=== PATIENT | female | born 1960 | race American Indian/Alaskan Native ===

== ENCOUNTER 2019-01-06 09:01 | Emergency (ER) | payer MEDICARE ==
[2019-01-06] MEDS ORDERED: ZOFRAN IV ONE (10:21)
[2019-01-06] MEDS ORDERED: MORPHINE IV ONE (10:21)
[2019-01-06] MEDS ORDERED: ROXICODONE PO ONE (10:42)
[2019-01-06 10:54] LABS: Basophils % (Auto) 0.7 % (0.0-1.8); Hematocrit 48.9 % (30.3-42.9); Hemoglobin 16.4 gm/dl (10.1-14.3); Lymphocytes # (Auto) 0.5 K/mm3 (1.2-5.4); Lymphocytes % (Auto) 12.3 % (13.4-35.0); Mean Corpuscular HGB Conc 34 % (30-34); Mean Corpuscular Volume 93 fl (79-97); Monocytes # (Auto) 0.1 K/mm3 (0.0-0.8); Monocytes % (Auto) 2.6 % (0.0-7.3); Platelet Count 329 K/mm3 (140-440); Red Blood Count 5.26 M/mm3 (3.65-5.03); Red Cell Distribution Width 12.8 % (13.2-15.2)
[2019-01-06 11:22] LABS: Alanine Aminotransferase 25 units/L (7-56); Albumin 4.2 g/dL (3.9-5); BUN/Creatinine Ratio 18; Blood Urea Nitrogen 7 mg/dL (7-17); Calcium 11.3 mg/dL (8.4-10.2); Hemolysis Index 50
--- NOTE | 2019-01-06 11:44 | Emergency Department Report ---
ED General Adult HPI - General Chief complaint: Pain General Stated complaint: CHEST PAIN Time Seen by Provider: 01/06/19 10:21 Source: patient, EMS Mode of arrival: Wheelchair Limitations: No Limitations - History of Present Illness Initial comments: Patient is a 58-year-old female past medical history of metastatic breast cancer who presents with chronic pain all over her body. Patient states that she has pain in her chest and in her back this is her typical type of cancer pain however when she tried to take some of her reduction pain medicine it did not help relieve the pain. Severity scale (0 -10): 10 - Related Data Previous Rx's Medication Instructions Recorded Last Taken Type oxyCODONE /ACETAMINOPHEN [Percocet 1 tab PO Q6H PRN #30 tablet 12/27/18 Unknown Rx 5/325 mg] traMADol [Ultram 50 MG tab] 50 mg PO Q4H PRN #20 tablet 12/27/18 Unknown Rx Oxycodone HCl [roxiCODONE] 15 mg PO Q6H PRN #21 tablet 01/06/19 Unknown Rx Allergies Allergy/AdvReac Type Severity Reaction Status Date / Time acetaminophen [From Tylenol] Allergy Rash Verified 01/06/19 09:03 aspirin Allergy Rash Verified 01/06/19 09:03 ibuprofen Allergy Rash Verified 01/06/19 09:03 ED Review of Systems ROS: Stated complaint: CHEST PAIN Other details as noted in HPI Constitutional: denies: chills, fever Eyes: denies: eye pain, eye discharge, vision change ENT: denies: ear pain, throat pain Respiratory: denies: cough, shortness of breath, wheezing Cardiovascular: denies: palpitations Endocrine: no symptoms reported Gastrointestinal: denies: abdominal pain, nausea, diarrhea Genitourinary: denies: urgency, dysuria, discharge Musculoskeletal: back pain, arthralgia, myalgia. denies: joint swelling Skin: denies: rash, lesions Neurological: denies: headache, weakness, paresthesias Psychiatric: denies: anxiety, depression Hematological/Lymphatic: denies: easy bleeding, easy bruising ED Past Medical Hx - Past Medical History Hx Liver Disease: Yes (hep C) Additional medical history: breast CA - Surgical History Hx Breast Surgery: Yes (Left masectomy) - Social History Smoking Status: Former Smoker Substance Use Type: None - Medications Home Medications: Home Medications Medication Instructions Recorded Confirmed Last Taken Type oxyCODONE /ACETAMINOPHEN [Percocet 1 tab PO Q6H PRN #30 tablet 12/27/18 Unknown Rx 5/325 mg] traMADol [Ultram 50 MG tab] 50 mg PO Q4H PRN #20 tablet 12/27/18 Unknown Rx Oxycodone HCl [roxiCODONE] 15 mg PO Q6H PRN #21 tablet 01/06/19 Unknown Rx ED Physical Exam - General Limitations: No Limitations General appearance: alert, in no apparent distress - Head Head exam: Present: atraumatic, normocephalic - Eye Eye exam: Present: normal appearance - ENT ENT exam: Present: mucous membranes moist - Neck Neck exam: Present: normal inspection - Respiratory Respiratory exam: Present: normal lung sounds bilaterally. Absent: respiratory distress - Cardiovascular Cardiovascular Exam: Present: regular rate, normal rhythm. Absent: systolic murmur, diastolic murmur, rubs, gallop - GI/Abdominal GI/Abdominal exam: Present: soft, normal bowel sounds - Extremities Exam Extremities exam: Present: normal inspection - Back Exam Back exam: Present: normal inspection - Neurological Exam Neurological exam: Present: alert, oriented X3 - Psychiatric Psychiatric exam: Present: normal affect, normal mood - Skin Skin exam: Present: warm, dry, intact, normal color. Absent: rash ED Course Vital Signs 01/06/19 01/06/19 01/06/19 09:03 10:50 10:54 Pulse Rate 88 Respiratory 22 18 18 Rate Blood Pressure 160/97 O2 Sat by Pulse 98 99 Oximetry 01/06/19 01/06/19 11:20 11:43 Pulse Rate Respiratory 18 18 Rate Blood Pressure O2 Sat by Pulse Oximetry ED Medical Decision Making - Lab Data Result diagrams: 01/06/19 10:36 01/06/19 10:36 Lab Results 01/06/19 01/06/19 Range/Units 10:36 10:36 WBC 4.4 L (4.5-11.0) K/mm3 RBC 5.26 H (3.65-5.03) M/mm3 Hgb 16.4 H (10.1-14.3) gm/dl Hct 48.9 H (30.3-42.9) % MCV 93 (79-97) fl MCH 31 (28-32) pg MCHC 34 (30-34) % RDW 12.8 L (13.2-15.2) % Plt Count 329 (140-440) K/mm3 Lymph % (Auto) 12.3 L (13.4-35.0) % Cecil % (Auto) 2.6 (0.0-7.3) % Eos % (Auto) 0.0 (0.0-4.3) % Baso % (Auto) 0.7 (0.0-1.8) % Lymph # 0.5 L (1.2-5.4) K/mm3 Cecil # 0.1 (0.0-0.8) K/mm3 Eos # 0.0 (0.0-0.4) K/mm3 Baso # 0.0 (0.0-0.1) K/mm3 Seg Neutrophils % 84.4 H (40.0-70.0) % Seg Neutrophils # 3.8 (1.8-7.7) K/mm3 Sodium 139 (137-145) mmol/L Potassium 3.6 (3.6-5.0) mmol/L Chloride 96.1 L (98-107) mmol/L Carbon Dioxide 25 (22-30) mmol/L Anion Gap 22 mmol/L BUN 7 (7-17) mg/dL Creatinine 0.4 L (0.7-1.2) mg/dL Estimated GFR > 60 ml/min BUN/Creatinine Ratio 18 % Glucose 128 H (65-100) mg/dL Calcium 11.3 H (8.4-10.2) mg/dL Total Bilirubin 0.80 (0.1-1.2) mg/dL AST 61 H (5-40) units/L ALT 25 (7-56) units/L Alkaline Phosphatase 164 H (35-129) units/L Troponin T < 0.010 (0.00-0.029) ng/mL Total Protein 9.2 H (6.3-8.2) g/dL Albumin 4.2 (3.9-5) g/dL Albumin/Globulin Ratio 0.8 % - Medical Decision Making Chief medical diagnosis: Metastatic cancer pain Differential medical diagnosis: Electrolyte abnormality, pain secondary to bony metastasis BLOOD work and I will get IV pain medication. Critical care attestation.: If time is entered above; I have spent that time in minutes in the direct care of this critically ill patient, excluding procedure time. ED Disposition Clinical Impression: Metastatic cancer, Total body pain Disposition: DC-01 TO HOME OR SELFCARE Is pt being admited?: No Does the pt Need Aspirin: No Condition: Stable Prescriptions: Oxycodone HCl [roxiCODONE] 15 mg PO Q6H PRN #21 tablet PRN Reason: Pain Referrals: EDISON HERZOG MD [Primary Care Provider] - 3-5 Days
[2019-01-06 14:27] VITALS: BP 106/86
== END 2019-01-06 14:36 | disposition home or self-care (01) ==
LOC: ED 09:01
DX: C50.919 Malignant neoplasm of unspecified site of unspecified female breast (principal); R07.89 Other chest pain; M79.10 Myalgia, unspecified site; Z88.5 Allergy status to narcotic agent; Z88.6 Allergy status to analgesic agent; Z90.12 Acquired absence of left breast and nipple; Z87.891 Personal history of nicotine dependence
CPT/HCPCS: 36415; 80053; 84484; 85025; 96374; 96375; 99284; J2270; J2405

== ENCOUNTER 2019-02-15 20:49 | Emergency (ER) | payer MEDICARE ==
--- NOTE | 2019-02-15 21:28 | Emergency Department Report ---
ED General Adult HPI - General Chief complaint: Pain General Stated complaint: PT WANTS PAIN MEDS Time Seen by Provider: 02/15/19 21:25 Source: patient, EMS (verbal report received from EMS.ems notes not available at time of chart dictation), RN notes reviewed, old records reviewed Mode of arrival: Stretcher Limitations: Other (patient is reportedly hard of hearing) - History of Present Illness Initial comments: This is a 58-year-old female. Patient is not known to this provider previously. Patient has a recent history of metastatic breast cancer. Patient recently had an extensive evaluation at this hospital within the past month and a half, CT scan of the chest, abdomen, pelvis suggesting metastatic disease. She is documented to have diffuse body pain, and she also had MR of the lumbar spine recently performed, demonstrating multiple mass lesions involving the lumbosacral spine, and iliac bones. Of note, patient has recently presented multiple times to this hospital for chest wall pain, extremity pain secondary to presumed metastatic disease. Additional history obtained from EMS. As per verbal report from EMS, patient has been having chronic pain, which is corroborated by the patient's family member/granddaughter, and the patient was able to walk to the door into the ambulance using a walker without significant difficulty. EMS also indicates that while the patient has a hearing aid and may be hard of hearing, the patient was able to hear her granddaughter perfectly well, but while communicating with 911 personnel, indicated that she could not hear them. The patient was furthermore seen by one of my colleagues at this hospital recently for chronic pain. Today, the patient complains of chest wall pain, back pain, and muscular skeletal pain. The patient does not think that she's had pain like this before. However, review of recent medical documentation indicates multiple visits for similar pain. The patient indicates her chest wall pain is sharp, increases with palpation, decreases with rest, and decreases with range of motion. The patient indicates no new or different lower extremity weakness. The patient does not indicate bladder or bowel retention or incontinence. The patient denies fevers. The patient has chronic shortness of breath. The patient makes no complaints of vomiting or diaphoresis. The patient is not sure if she is taking aspirin recently. She indicates she is following up with outpatient oncology doctor Krystian Radiation: other Quality: other Consistency: other Improves with: other Worsens with: other Associated Symptoms: other - Related Data Previous Rx's Medication Instructions Recorded Last Taken Type oxyCODONE /ACETAMINOPHEN [Percocet 1 tab PO Q6H PRN #30 tablet 12/27/18 Unknown Rx 5/325 mg] traMADol [Ultram 50 MG tab] 50 mg PO Q4H PRN #20 tablet 12/27/18 Unknown Rx Oxycodone HCl [roxiCODONE] 15 mg PO Q6H PRN #21 tablet 01/06/19 Unknown Rx Allergies Allergy/AdvReac Type Severity Reaction Status Date / Time acetaminophen [From Tylenol] Allergy Rash Verified 01/06/19 09:03 aspirin Allergy Rash Verified 01/06/19 09:03 ibuprofen Allergy Rash Verified 01/06/19 09:03 ED Review of Systems ROS: Stated complaint: PT WANTS PAIN MEDS Other details as noted in HPI Constitutional: malaise Eyes: denies: eye discharge ENT: denies: epistaxis Respiratory: denies: wheezing Cardiovascular: chest pain Gastrointestinal: denies: vomiting Musculoskeletal: back pain, arthralgia, myalgia Skin: denies: lesions Neurological: weakness Psychiatric: anxiety ED Past Medical Hx - Past Medical History Hx Liver Disease: Yes (hep C) Additional medical history: breast CA - Surgical History Hx Breast Surgery: Yes (Left masectomy) - Social History Smoking Status: Former Smoker Substance Use Type: None - Medications Home Medications: Home Medications Medication Instructions Recorded Confirmed Last Taken Type oxyCODONE /ACETAMINOPHEN [Percocet 1 tab PO Q6H PRN #30 tablet 12/27/18 Unknown Rx 5/325 mg] traMADol [Ultram 50 MG tab] 50 mg PO Q4H PRN #20 tablet 12/27/18 Unknown Rx Oxycodone HCl [roxiCODONE] 15 mg PO Q6H PRN #21 tablet 01/06/19 Unknown Rx ED Physical Exam - General Limitations: No Limitations General appearance: alert, in no apparent distress, anxious - Head Head exam: Present: atraumatic, normocephalic - Eye Eye exam: Present: normal appearance, EOMI. Absent: nystagmus - ENT ENT exam: Present: normal exam, normal orophraynx, mucous membranes moist, n ormal external ear exam - Neck Neck exam: Present: normal inspection, full ROM. Absent: tenderness - Respiratory Respiratory exam: Present: normal lung sounds bilaterally. Absent: respiratory distress - Cardiovascular Cardiovascular Exam: Present: regular rate, normal rhythm, normal heart sounds. Absent: bradycardia, tachycardia, irregular rhythm, systolic murmur, diastolic murmur, rubs, gallop - GI/Abdominal GI/Abdominal exam: Present: soft. Absent: distended, tenderness, guarding, rebound, rigid, pulsatile mass - Extremities Exam Extremities exam: Present: normal inspection, full ROM, tenderness, other (there is 2+ pulses in the bilateral upper, lower extremities. The pelvis is stable. There is no long distal bony tenderness. The muscular compartments are soft. Patient has paraspinal tenderness. She has proximal femur tenderness.). Absent: calf tenderness - Back Exam Back exam: Present: normal inspection, tenderness, paraspinal tenderness - Neurological Exam Neurological exam: Present: alert, other (Extraocular movements intact. Tongue midline. No facial droop. Facial sensation intact to light touch in the V1, V2, V3 distribution bilaterally. 5 and 5 strength in 4 extremities.. Sensation is intact to light touch in 4 extremities.) - Psychiatric Psychiatric exam: Present: anxious - Skin Skin exam: Present: warm, dry, intact, normal color. Absent: rash ED Course Vital Signs 02/15/19 21:38 Temperature 98.6 F Pulse Rate 88 Respiratory 21 Rate Blood Pressure 158/87 O2 Sat by Pulse 97 Oximetry - Reevaluation(s) Reevaluation #1: 02/15/19 21:28 [place] [employer]ER AWARE Total Prescriptions 4 Total Private Pay 0 Total Prescribers 3 Total Pharmacies 2 Opioids* (excluding buprenorphine) Current Qty 0.0 Current MME/day 0.0 30 Day Avg MME/day 15.75 Buprenorphine* Current Qty 0.0 Current mg/day 0.0 30 Day Avg mg/day 0.0 Prescriptions Filled ID Written Drug QTY Days Prescriber Rx # Pharmacy * Refills Daily Dose Pymt Type CORPORATE BOND TRADER 01/22/2019 1 01/06/2019 OXYCODONE HCL 15 MG TABLET 21.0 5 MS OFO [id number] JOHN ([id number]) 0 94.5 MME [place] 12/31/2018 1 12/28/2018 OXYCODONE-ACETAMINOPHEN 5-325 30.0 7 DI MARJAN [id number] JOHN ([id number]) 0 32.14 [place]ME [place] 12/27/2018 1 12/27/2018 TRAMADOL HCL 50 MG TABLET 20.0 5 DI MARJAN [id number] JOHN ([id number]) 0 20.0 [place]ME [place] 08/27/2018 2 08/25/2018 TRAMADOL HCL 50 MG TABLET 7.0 1 TH GUN [id number] MARY CARMEN ([id number]) 0 35.0 MME [facility] [place] *Pharmacy is created using a combination of pharmacy name and the last four digits of the pharmacy license number. *Per CDC guidance, the MME conversion factors prescribed or provided as part of medication-assisted treatment for opioid use disorder should not be used to benchmark against dosage thresholds meant for opioids prescribed for pain. Buprenorphine products have no agreed upon morphine equivalency, and as partial opioid agonists, are not expected to be associated with overdose risk in the same dose-dependent manner as doses for full agonist opioids. MME = morphine milligram equivalents. mg = dose in milligrams. Prescribers Name Address [facility] Zip Phone APPLE MORENO MD [address] [facility] [id number] KINA AUGUSTIN [address] [facility] [address] BELGICA KIRKPATRICK MD [address] [facility] [id number] [facility] Zip Phone DONOVAN PERKINS [phone] [facility] [address] [facility] [phone] [facility] [address] Reevaluation #2: 02/15/19 23:20 The patient states she had additional pain medication prescribed for her by her oncologist, and she's not gotten it filled yet. ED Medical Decision Making - Lab Data Result diagrams: 02/15/19 22:02 02/15/19 22:02 Vital Signs 02/15/19 21:38 Temperature 98.6 F Pulse Rate 88 Respiratory 21 Rate Blood Pressure 158/87 O2 Sat by Pulse 97 Oximetry Vital Signs 02/15/19 21:38 Temperature 98.6 F Pulse Rate 88 Respiratory 21 Rate Blood Pressure 158/87 O2 Sat by Pulse 97 Oximetry Lab Results 02/15/19 Range/Units 22:02 WBC 5.5 (4.5-11.0) K/mm3 RBC 4.42 (3.65-5.03) M/mm3 Hgb 13.2 (10.1-14.3) gm/dl Hct 40.0 (30.3-42.9) % MCV 91 (79-97) fl MCH 30 (28-32) pg MCHC 33 (30-34) % RDW 12.5 L (13.2-15.2) % Plt Count 286 (140-440) K/mm3 - EKG Data -: EKG Interpreted by Ak EKG shows normal: sinus rhythm Rate: normal - EKG Data When compared to previous EKG there are: no significant change 02/15/19 22:53 EKG today shows a sinus rhythm, 82 bpm, QTC 448 ms, NE interval prolonged, high left ventricular voltage/left ventricular hypertrophy, biphasic T-wave in V2, poor r wave PROGRESSION, abnormal EKG, not consistent with ST elevation myocardial infarction, this EKG doesn't appear to be changed from prior EKG from December 2018 - Radiology Data Radiology results: pending, report reviewed, image reviewed [facility] [address] [place] [address] Magnetic Resonance Report Signed Patient: MAYUR SIEGEL MR#: [id number] : 1960 Acct:[id number] Age/Sex: 58 / F ADM Date: 12/24/18 Loc: 3A A370-[address]: NAZ GARCIA MD Ordering Physician: NAZ GARCIA MD Date of Service: 12/24/18 Procedure(s): MR lumbar spine wo/w con Accession Number(s): [id number] cc: NAZ GARCIA MD PROCEDURE: MR LUMBAR SPINE WO/W CON TECHNIQUE: Magnetic resonance imaging of the lumbar spine was performed using standard pulse sequences before and after the IV injection of paramagnetic contrast. HISTORY: HX BREAST CANCER 2010--WORSENING LOW BACK PAIN COMPARISONS: None . FINDINGS: . There is straightening of the lumbar spine. Vertebral height is normal. Conus medullaris is normal in location and appearance. Multiple mass lesions are noted involving the lumbosacral spine and bilateral iliac bones which are uniformly hypointense on T1 and T2-weighted images demonstrating diffuse uniform enhancement on postcontrast images. L1 vertebral body demonstrates a posterior left mass lesion extending into the left pedicle measuring about 1.9 x 1.4 cm demonstrating a mild degree extradural intraspinal extension causing mild deformity of the thecal sac. A small mass lesion measuring about 0.8 cm involving the posterior portion of the L2 vertebral body on the right appears to have a mild degree anterior extradural component causing minimal deformity of the ventral thecal sac. At L4-5 there is mild degree diffuse disc bulge with superimposed mild degree right lateral disc herniation into the right neural foramen. There is a mass lesion involving the L4 vertebral body and its left pedicle measuring about 2.4 x 2.0 cm which is extending into the left anterior extradural compartment causing mild deformity of the thecal sac. At L5-S1 there is broad-based disc bulge with mild degree central disc herniation without significant spinal canal or neural foraminal compromise. There is a large irregular mass lesion involving the left hemisacrum which is partially visualized and is demonstrating extension into the left second sacral foramen. IMPRESSION: Multiple mass lesions involving lumbosacral spine and iliac bones demonstrate uniform enhancement consistent with metastatic disease. There is no significant spinal canal compromise by these mass lesions as described above. Mild degree central disc herniation at L5-S1 and mild degree right lateral disc herniation at L4-5 as described above. A left hemisacral mass lesion is extending into the left second sacral foramen. This document is electronically signed by Sloane Romero MD., Dec 24 2018 09:11:28 PM ET Transcribed By: [facility] Dictated By: SLOANE ROMERO Electronically Authenticated By: SLOANE ROMERO Signed Date/Time: 12/24/182112 Ordering Physician: KAREN BATRES MD Date of Service: 12/26/18 Procedure(s): CT abdomen pelvis w con Accession Number(s): [id number] cc: KAREN BATRES MD PROCEDURE: CT ABDOMEN PELVIS W CON TECHNIQUE: Computerized axial tomography of the abdomen and pelvis was performed with intravenous contrast. CONTRAST: 100 cc Omnipaque [address] DOSE LENGTH PRODUCT: 1089.95 mGycm HISTORY: pelvic osseous masses COMPARISONS: None . FINDINGS: Visualized lower thorax: Mild bibasilar atelectasis is noted. Liver: Normal size and attenuation. Spleen: Normal size and attenuation. Gallbladder and biliary system: Normal. Pancreas: Normal. Adrenals: Normal. Kidneys: There is a duplicated collecting system on the left extending to the level bladder.. GI tract: Normal . Moderate stool is present throughout the proximal half of the colon. The appendix is normal. Lymph nodes and mesentery: Normal. Vasculature: There is prominence of the left hemiazygos vein along the spine. Bladder: Normal. Reproductive organs: Normal. Peritoneum: No free fluid. Musculoskeletal structures: There are numerous lytic destructive soft tissue lesions identified throughout the spine, sacrum, and bilateral pelvis. The largest focus occupies much of the left sacral ala measuring up to 6 cm. In the spine, the T11, L1, at L4 vertebral levels have expansile lucency protruding posteriorly towards the spinal canal and the left pedicles at those levels. At L1 and L4, there is deviation of the thecal sac towards the right. Other: None. IMPRESSION: 1. Numerous lytic destructive soft tissue lesions throughout the bony structures suspicious for metastatic disease. This is predominantly seen throughout the spine and pelvis. The largest focus is in the left sacral ala. Several of the foci in the left side of the spine e xtend posteriorly towards the spinal canal causing deviation of the thecal sac to the right. 2. No neoplastic etiology identified within the abdomen or pelvis. 3. 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 This document is electronically signed by Irlanda Florentino MD., Dec 26 2018 05:00:08 PM ET Transcribed By: [facility] Dictated By: IRLANDA FLORENTINO MD Electronically Authenticated By: IRLANDA FLORENTINO MD Signed Date/Time: 12/26/18 1701 [facility] [address] [place] [address] Cat Scan Report Signed Patient: MAYUR SIEGEL MR#: [id number] : 1960 Acct:[id number] Age/Sex: 57 / F ADM Date: 08/25/18 Loc: ED Attending Dr: Ordering Physician: APPLE MORENO MD Date of Service: 08/25/18 Procedure( s): CT angio chest Accession Number(s): [id number] cc: APPLE MORENO MD FINAL REPORT EXAM: CT ANGIO CHEST HISTORY: chest pain TECHNIQUE: CT examination of the chest with IV contrast CT angiographic 2D and thick slab 3D image post- processing PRIORS: Two-view chest 08/25/2018 FINDINGS: Prior left mastectomy with surgical clips in left axilla. Normal cardiac size without pericardial effusion. Intact normal caliber thoracic aorta. Normal-appearing esophagus. No hilar mass or mediastinal adenopathy. The visualized pulmonary arteries are diffusely patent bilaterally. There is no filling defect to suggest PE. Slight degenerative change in the regional skeleton. No evidence of acute fracture. There are multiple nonspecific lucent lesions throughout vertebral bodies of the thoracic and upper lumbar spine. The largest is within the T11 vertebral body. These may reflect vertebral hemangiomas. Differential includes metastatic lesions since patient has findings suggestive of prior left mastectomy. Bilateral slight pulmonary emphysema with small multifocal pulmonary parenchymal pneumatoceles. There is nonspecific prominence of interstitial markings throughout both lungs diffusely. This may be scarring. Differential includes interstitial edema and/or interstitial pneumonitis. Consider also radiation pneumonitis or lymphangitic spread of neoplasm. Multiple bilateral lower lobe pulmonary nodules are nonspecific. These may be neoplastic, inflammatory, infectious, or scarring. Dominant nodule measures 6 mm in the medial right lower lobe base, series 2, image 84 Lateral left lower lobe dominant pulmonary nodule measures 5 mm, series 2, image 70. IMPRESSION: Findings suggest prior left mastectomy with left axillary surgical clips. Although nonspecific, findings raise suspicion of metastatic foci in the thoracolumbar vertebrae as well as possibly in the lungs. Differential includes non neoplastic foci Multifocal prominence of pulmonary parenchymal interstitial markings may be scarring. D ifferential includes interstitial edema and/or interstitial pneumonitis. Consider also radiation pneumonitis or lymphangitic spread of neoplasm No CT evidence of large vessel or central pulmonary emboli. Transcribed By: MILLY Dictated By: HALLIE HEREDIA MD Electronically Authenticated By: HALLIE HEREDIA MD Signed Date/Time: 10/20/181912 - Medical Decision Making Differential diagnosis, including not limited to: Chronic cancer pain, costochondritis, chest wall pain, Assessment and plan: 58-year-old female with known metastatic cancer, recently had extensive workup at this hospital, objective imaging studies recently are reviewed and appreciated, who is offering inconsistent history regarding the nature of her pain. Her recent laboratory studies and imaging studies are reviewed. EMS history is reviewed and appreciated. The patient is currently not tachycardic or hypoxic. Her EKG today is morphologically unchanged from prior. Laboratory studies are reviewed and appreciated. It appears that the main issue here is chronic pain. We will treat the patient's pain, and replete her hypokalemia. I do not clinically suspect pulmonary embolism based off of the history and physical, and recent objective imaging studies. I think acute coronary syndrome is unlikely, given duration of symptoms, documented history, unchanged EKG, and laboratory studies. The patient at this point time does not appear to have a condition which requires hospitalization, and she can follow up with her outpatient oncologist and primary care doctor. Critical care attestation.: If time is entered above; I have spent that time in minutes in the direct care of this critically ill patient, excluding procedure time. ED Disposition Clinical Impression: Metastatic cancer Disposition: DC-01 TO HOME OR SELFCARE Is pt being admited?: No Does the pt Need Aspirin: No Condition: Stable Additional Instructions: Continue outpatient medications. Follow up with her primary care doctor or oncologist for your cancer pain within the next week. Follow up with a die cut operator for chest wall pain within the next 3-5 days. Return to the emergency room right away with new, worsening or different symptoms, or symptoms not present on the initial emergency room evaluation. Please make certain to get the pain prescriptions filled that were dispensed to by your oncologist, as you have described to this ER physician. Referrals: ADDY QUINTANILLA MD [Staff Physician] - 3-5 Days [facility] [Provider Group] - 3-5 Days
[2019-02-15] MEDS ORDERED: DILAUDID IV ONE (21:44)
[2019-02-15 22:46] LABS: Hemoglobin 13.2 gm/dl (10.1-14.3); Mean Corpuscular HGB Conc 33 % (30-34); Mean Corpuscular Volume 91 fl (79-97); Platelet Count 286 K/mm3 (140-440); Red Blood Count 4.42 M/mm3 (3.65-5.03); Red Cell Distribution Width 12.5 % (13.2-15.2)
--- NOTE | 2019-02-15 22:53 | XRay Report ---
PROCEDURE: XR CHEST 1V AP TECHNIQUE: Chest radiograph single view. HISTORY: chest wall pain COMPARISONS: None . FINDINGS: Heart: Normal. Mediastinum/Vessels: Normal. Lungs/Pleural space: Normal. Bony thorax: No acute osseous abnormality. Life support devices: None. Surgical clips noted in the left axilla IMPRESSION: No acute cardiopulmonary abnormality. This document is electronically signed by Deshawn Olivarez MD., February 15 2019 10:51:12 PM ET
[2019-02-15 22:57] LABS: INR 1.01 (0.87-1.13)
[2019-02-15 23:03] LABS: BUN/Creatinine Ratio 16; Blood Urea Nitrogen 8 mg/dL (7-17); Calcium 10.9 mg/dL (8.4-10.2); Hemolysis Index 10
[2019-02-15] MEDS ORDERED: K-DUR PO ONE (23:17)
[2019-02-16 01:00] VITALS: BP 123/72
== END 2019-02-16 00:59 | disposition home or self-care (01) ==
LOC: ED 20:49
DX: C50.912 Malignant neoplasm of unspecified site of left female breast (principal); Z87.891 Personal history of nicotine dependence; Z86.19 Personal history of other infectious and parasitic diseases; Z88.6 Allergy status to analgesic agent
CPT/HCPCS: 36415; 71045; 80048; 82550; 83735; 84484; 85027; 85610; 93005; 93010; 96374; 99284; J1170

== ENCOUNTER 2019-03-19 17:02 | Inpatient (IN) | payer MEDICARE ==
[2019-03-19] MEDS ORDERED: NACL 0.9% 1000 ML 1,000 ML IV ONE ×2 (17:31→19:00)
--- NOTE | 2019-03-19 17:33 | Event Note ---
ED Screening Note Date of service: 03/19/19 Time: 17:12 ED Screening Note: 58 y old female presents with SI and s/p fall today This initial assessment/diagnostic orders/clinical plan/treatment(s) is/are subject to change based on patients health status, clinical progression and re- assessment by fellow clinical providers in the ED. Further treatment and workup at subsequent clinical providers discretion. Patient/guardian urged not to elope from the ED as their condition may be serious if not clinically assessed and managed. Initial orders include:
--- NOTE | 2019-03-19 17:37 | Emergency Department Report ---
HPI - General Chief Complaint: Psych Time Seen by Provider: 03/19/19 17:10 - HPI HPI: Room 8 The patient is a 58-year-old female presenting with chief complaint of suicidal ideation and fall. Family states the patient has made suicidal statements over the past 2-3 weeks. Patient acknowledges feeling suicidal for the past several weeks. Patient denies any active attempts at harming herself. Today the patient told one of her daughters that she was planning on taking pills to overdose. The patient states today while going to the bathroom she stumbled backwards and could not catch want anything to break her fall causing her to fall landing on her back. Patient complains of low back pain Location: [See above] Duration: [See above] Quality: [See above] Severity: [See above] Modifying factors: [see above] Context: [see above] Mode of transportation: [not driving] ED Past Medical Hx - Past Medical History Previous Medical History?: Yes Hx Liver Disease: Yes (hep C) Additional medical history: breast CA. bone CA (stage 4) - Surgical History Past Surgical History?: Yes Hx Breast Surgery: Yes (Left masectomy) - Family History Family history: no significant - Social History Smoking Status: Former Smoker (none times approximately one month) Substance Use Type: Cocaine (history of crack use. None 8 months) - Medications Home Medications: Home Medications Medication Instructions Recorded Confirmed Last Taken Type oxyCODONE /ACETAMINOPHEN [Percocet 1 tab PO Q6H PRN #30 tablet 12/27/18 Unknown Rx 5/325 mg] traMADol [Ultram 50 MG tab] 50 mg PO Q4H PRN #20 tablet 12/27/18 Unknown Rx Oxycodone HCl [roxiCODONE] 15 mg PO Q6H PRN #21 tablet 01/06/19 Unknown Rx ED Review of Systems ROS: Stated complaint: FELL Other details as noted in HPI Constitutional: no symptoms reported Eyes: denies: eye pain Respiratory: no symptoms reported Cardiovascular: denies: chest pain Endocrine: no symptoms reported Gastrointestinal: denies: abdominal pain Genitourinary: denies: dysuria Musculoskeletal: back pain Neurological: denies: headache Physical Exam - Physical Exam Vital Signs: Vital Signs 03/19/19 17:10 Temperature 98.7 F Pulse Rate 136 H Respiratory 20 Rate Blood Pressure 127/101 O2 Sat by Pulse 97 Oximetry Vital Signs 03/19/19 03/19/19 03/19/19 17:10 17:31 18:37 Temperature 98.7 F 98.1 F Pulse Rate 136 H 113 H Respiratory 20 18 16 Rate Blood Pressure 127/101 Blood Pressure 189/111 [Right] O2 Sat by Pulse 97 99 99 Oximetry 03/19/19 03/19/19 03/19/19 18:55 19:57 21:14 Temperature 97.6 F 97.5 F L Pulse Rate 113 H 109 H 98 H Respiratory 16 18 Rate Blood Pressure 190/117 Blood Pressure 180/102 165/97 [Right] O2 Sat by Pulse 100 96 Oximetry Physical Exam: GENERAL: The patient is well-developed well-nourished female lying on stretcher not appearing to be in acute distress. [] HEENT: Normocephalic. Atraumatic. Extraocular motions are intact. Patient has moist mucous membranes. NECK: Supple. Trachea midline CHEST/LUNGS: Clear to auscultation. There is no respiratory distress noted. HEART/CARDIOVASCULAR: Regular. There is no tachycardia. There is no gallop rub or murmur. ABDOMEN: Abdomen is soft, with tenderness to palpation in the right upper q uadrant. Patient has normal bowel sounds. There is no abdominal distention. SKIN: There is no rash. There is no edema. There is no diaphoresis. NEURO: The patient is awake, alert, and oriented. The patient is cooperative. The patient has no focal neurologic deficits. The patient has normal speech MUSCULOSKELETAL: There is tenderness to palpation of the lumbar spine. There are no axial step-offs. There is no evidence of acute injury. ED Course Vital Signs 03/19/19 17:10 Temperature 98.7 F Pulse Rate 136 H Respiratory 20 Rate Blood Pressure 127/101 O2 Sat by Pulse 97 Oximetry ED Medical Decision Making - Lab Data Result diagrams: 03/19/19 17:38 03/19/19 17:38 - Radiology Data Radiology results: report reviewed (lumbar spine x-ray, CT head, CT abdomen and pelvis), image reviewed (lumbar spine x-ray, CT head, CT abdomen and pelvis) interpreted by me: Lumbar spine x-ray-no acute fracture seen [facility] [address] [place] [address] XRay Report Signed Patient: MAYUR SIEGEL MR#: [id number] : 1960 Acct:[id number] Age/Sex: 58 / F ADM Date: 03/19/19 Loc: ED Attending Dr: Ordering Physician: MEDHAT MALONE MD Date of Service: 03/19/19 Procedure(s): XR spine lumbosacral 2-3V Accession Number(s): [id number] cc: MEDHAT MALONE MD Fluoro Time In Minutes: LUMBAR SPINE, AP AND LATERAL VIEWS 03/19/2019 INDICATION / CLINICAL INFORMATION: pain after fall. COMPARISON: 11/08/2018 FINDINGS: Mild degenerative changes are seen at L4-5 and L5-S1. Bony alignment is normal. There are areas of lytic lesion development since the comparison study involving the left pedicles of L1 3 and 4 vertebral bodies and the medial left 12th rib. No compression fractures have developed. IMPRESSION: Lytic bone lesions involving the lumbar spine and left 12th rib suspicious for metastatic disease. Signer Name: Russell Marie MD Signed: 03/19/2019 7:08 PM Workstation Name: [id number] Transcribed By: MN Dictated By: Russell Marie MD Electronically Authenticated By: Russell Marie MD Signed Date/Time: 03/19/191907 DD/ 02 TD/TT: [facility] [address] [place] [address] Cat Scan Report Signed Patient: MAYUR SIEGEL MR#: [id number] : 1960 Acct:[id number] Age/Sex: 58 / F ADM Date: 03/19/19 Loc: ED Attending Dr: Ordering Physician: MEDHAT MALONE MD Date of Service: 03/19/19 Procedure(s): CT head/brain wo con Accession Number(s): [id number] cc: MEDHAT MALONE MD CT HEAD WITHOUT CONTRAST INDICATION / CLINICAL INFORMATION: Patient fell. Difficulty standing. TECHNIQUE: All CT scans at this location are performed using CT dose reduction for ALARA by means of automated exposure control. COMPARISON: None available. FINDINGS: HEMORRHAGE: No evidence of intracranial hemorrhage or extra-axial fluid collection. EXTRA-AXIAL SPACES: Cortical sulci, sylvian fissures and basilar cisterns have an unremarkable appearance. VENTRICULAR SYSTEM: The ventricular system is of normal size and configuration. CEREBRAL PARENCHYMA: No areas of abnormal brain parenchymal attenuation are identified. There is no indication of recent infarction. MIDLINE SHIFT OR HERNIATION: There is no mass effect. CEREBELLUM / BRAINSTEM: Brainstem and cerebellum have an unremarkable appearance. INTRACRANIAL VESSELS:No abnormalities are identified on this noncontrast head CT. ORBITS: A large mass originating in the greater wing of the sphenoid bone extends into the left orbit. There is compression of the superior and lateral rectus muscles. This lesion measures 5.4 x 2.1 x 1.8 cm in size. SOFT TISSUES of HEAD: No significant abnormality. CALVARIUM: There are destructive, lytic lesions in the right pterion, right temporal squamosa and right parietal bone where 2 lytic lesions are identified. Smaller lytic lesions are identified in the left parietal bone. A 2.2 cm diameter lytic lesion is present at the left parietal vertex. Differential diagnosis includes metastatic disease versus multiple myeloma. PARANASAL SINUSES / MASTOID AIR CELLS: Paranasal sinuses are free from inflammatory mucosal disease. Mastoid air cells are normally pneumatized. IMPRESSION: 1. Multiple calvarial lesions as described above. Differential diagnosis includes multiple myeloma and metastatic disease. [place] graph 2. A lesion arising in the greater wing of the left sphenoid bone extends into the left orbit compressing the superior and lateral rectus muscles. Signer Name: Ori Sheth MD Signed: 03/19/2019 7:39 PM Workstation Name: [id number] Transcribed By: Dictated By: Ori Sheth MD Electronically Authenticated By: Ori Sheth MD Signed Date/Time: 03/19/191938 DD/ 31 TD/TT: [facility] [address] [place] [address] Cat Scan Report Signed Patient: MAYUR SIEGEL MR#: [id number] : 1960 Acct:[id number] Age/Sex: 58 / F ADM Date: 03/19/19 Loc: ED Attending Dr: Ordering Physician: MEDHAT MALONE MD Date of Service: 03/19/19 Procedure(s): CT abdomen pelvis w con Accession Number(s): [id number] cc: MEDHAT MALONE MD CT ABDOMEN AND PELVIS WITH CONTRAST HISTORY: right upper quadrant pain after fall. COMPARISON: CT abdomen/pelvis from 12/26/2018 TECHNIQUE: CT images of the abdomen and pelvis were obtained following administration of intravenous contrast. All CT scans at this location are performed using CT dose reduction for ALARA by means of automated exposure control. CONTRAST: 100 ml of intravenous contrast administered. FINDINGS: Lungs/bones: There are a few pulmonary nodules in the lung bases which are new since the previous examination. There is also scattered basilar atelectasis. Multiple destructive lytic lesions are again seen primarily within the spine, some of which cause severe spinal canal narrowing. The biggest mass overall is destroying the majority of the left sacral ala and compressing at least 2 of the exiting nerve roots. The biggest spinal based mass is present at L1 and causes very severe spinal canal stenosis. Abdomen/pelvis: The liver, gallbladder, spleen, pancreas, adrenals, kidneys, and proximal GI tract appear unremarkable. Urinary bladder and reproductive organs are unremarkable with no pelvic free fluid and no acute colonic abnormality identified. IMPRESSION: 1. No acute abnormality identified. Interval progression of metastatic disease which is primarily seen within the bones but now also seen in the lung bases. The primary differential considerations would be metastatic disease such as lung cancer versus multiple myeloma. Please note that the patient has severe spinal canal narrowing at several levels but overall greatest at L1. Signer Name: Cole Samuels MD Signed: 03/19/2019 7:54 PM Workstation Name: [id number] Transcribed By: REX Dictated By: Cole Samuels MD Electronically Authenticated By: Cole Samuels MD Signed Date/Time: 03/19/191953 DD/ 48 TD/TT: - Differential Diagnosis lumbar strain, lumbar fracture, suicidal ideation, hepatitis, liver lacerat Critical care attestation.: If time is entered above; I have spent that time in minutes in the direct care of this critically ill patient, excluding procedure time. ED Disposition Clinical Impression: Suicidal ideation, Metastatic cancer Disposition: DC/TX-65 PSY HOSP/PSY UNIT Is pt being admited?: No Does the pt Need Aspirin: No Condition: Stable Referrals: ALYSSA GOMEZ MD [Primary Care Provider] - 3-5 Days Time of Disposition: 21:40 (awaiting placement)
[2019-03-19 17:53] LABS: Basophils % (Auto) 0.3 % (0.0-1.8); Eosinophils % (Auto) 0.1 % (0.0-4.3); Hematocrit 47.7 % (30.3-42.9); Hemoglobin 15.7 gm/dl (10.1-14.3); Lymphocytes # (Auto) 1.7 K/mm3 (1.2-5.4); Lymphocytes % (Auto) 15.7 % (13.4-35.0); Mean Corpuscular HGB Conc 33 % (30-34); Mean Corpuscular Volume 90 fl (79-97); Monocytes # (Auto) 0.4 K/mm3 (0.0-0.8); Monocytes % (Auto) 3.7 % (0.0-7.3); Platelet Count 372 K/mm3 (140-440); Red Blood Count 5.29 M/mm3 (3.65-5.03); Red Cell Distribution Width 12.8 % (13.2-15.2)
[2019-03-19 18:20] LABS: BUN/Creatinine Ratio 19; Blood Urea Nitrogen 13 mg/dL (7-17); Hemolysis Index 258
[2019-03-19 18:27] LABS: Free T4 (Free Thyroxine) 1.28 ng/dL (0.76-1.46)
[2019-03-19] MEDS ORDERED: CATAPRES PO ONE (18:41)
[2019-03-19 18:51] LABS: Amphetamine Screen,Urine PRESUMPTIVE NEGATIVE; Benzodiazepines Screen,Urine PRESUMPTIVE NEGATIVE; Cannabinoid Screen,Urine PRESUMPTIVE NEGATIVE; Cocaine Screen,Urine PRESUMPTIVE NEGATIVE; Methadone Screen,Urine PRESUMPTIVE NEGATIVE; Opiate Screen,Urine PRESUMPTIVE NEGATIVE
[2019-03-19 18:53] LABS: Amorphous Crystals,Urine Few; Bilirubin,Urine NEG (Negative); Blood,Urine NEG (Negative); Color,Urine Yellow (Yellow); Mucus,Urine FEW /HPF; Protein,Urine <15 mg/dL mg/dL (Negative); Urobilinogen,Urine < 2.0 mg/dL (<2.0)
[2019-03-19 18:55] LABS: Alanine Aminotransferase 24 units/L (7-56)
[2019-03-19 18:56] LABS: Calcium 11.5 mg/dL (8.4-10.2)
[2019-03-19] MEDS ORDERED: K-DUR PO ONE (19:01)
--- NOTE | 2019-03-19 19:13 | XRay Report ---
LUMBAR SPINE, AP AND LATERAL VIEWS 03/19/2019 INDICATION / CLINICAL INFORMATION: pain after fall. COMPARISON: 11/08/2018 FINDINGS: Mild degenerative changes are seen at L4-5 and L5-S1. Bony alignment is normal. There are areas of lytic lesion development since the comparison study involving the left pedicles of L1 3 and 4 vertebral bodies and the medial left 12th rib. No compression fractures have developed. IMPRESSION: Lytic bone lesions involving the lumbar spine and left 12th rib suspicious for metastatic disease. Signer Name: Russell Marie MD Signed: 03/19/2019 7:08 PM Workstation Name: [id number]
--- NOTE | 2019-03-19 19:43 | Cat Scan Report ---
CT HEAD WITHOUT CONTRAST INDICATION / CLINICAL INFORMATION: Patient fell. Difficulty standing. TECHNIQUE: All CT scans at this location are performed using CT dose reduction for ALARA by means of automated e xposure control. COMPARISON: None available. FINDINGS: HEMORRHAGE: No evidence of intracranial hemorrhage or extra-axial fluid collection. EXTRA-AXIAL SPACES: Cortical sulci, sylvian fissures and basilar cisterns have an unremarkable appear ance. VENTRICULAR SYSTEM: The ventricular system is of normal size and configuration. CEREBRAL PARENCHYMA: No areas of abnormal brain parenchymal attenuation are identified. There is no i ndication of recent infarction. MIDLINE SHIFT OR HERNIATION: There is no mass effect. CEREBELLUM / BRAINSTEM: Brainstem and cerebellum have an unremarkable appearance. INTRACRANIAL VESSELS:No abnormalities are identified on this noncontrast head CT. ORBITS: A large mass originating in the greater wing of the sphenoid bone extends into the left orbit . There is compression of the superior and lateral rectus muscles. This lesion measures 5.4 x 2.1 x 1 .8 cm in size. SOFT TISSUES of HEAD: No significant abnormality. CALVARIUM: There are destructive, lytic lesions in the right pterion, right temporal squamosa and ri ght parietal bone where 2 lytic lesions are identified. Smaller lytic lesions are identified in the l eft parietal bone. A 2.2 cm diameter lytic lesion is present at the left parietal vertex. Differentia l diagnosis includes metastatic disease versus multiple myeloma. PARANASAL SINUSES / MASTOID AIR CELLS: Paranasal sinuses are free from inflammatory mucosal disease. Mastoid air cells are normally pneumatized. IMPRESSION: 1. Multiple calvarial lesions as described above. Differential diagnosis includes multiple myeloma an d metastatic disease. [place] graph 2. A lesion arising in the greater wing of the left sphenoid bone extends into the left orbit sabas sing the superior and lateral rectus muscles. Signer Name: Ori Sheth MD Signed: 03/19/2019 7:39 PM Workstation Name: [id number]
--- NOTE | 2019-03-19 19:59 | Cat Scan Report ---
CT ABDOMEN AND PELVIS WITH CONTRAST HISTORY: right upper quadrant pain after fall. COMPARISON: CT abdomen/pelvis from 12/26/2018 TECHNIQUE: CT images of the abdomen and pelvis were obtained following administration of intravenous contrast. All CT scans at this location are performed using CT dose reduction for ALARA by means of automated exposure control. CONTRAST: 100 ml of intravenous contrast administered. FINDINGS: Lungs/bones: There are a few pulmonary nodules in the lung bases which are new since the previous ex amination. There is also scattered basilar atelectasis. Multiple destructive lytic lesions are again seen primarily within the spine, some of which cause severe spinal canal narrowing. The biggest mass overall is destroying the majority of the left sacral ala and compressing at least 2 of the exiting n erve roots. The biggest spinal based mass is present at L1 and causes very severe spinal canal stenos is. Abdomen/pelvis: The liver, gallbladder, spleen, pancreas, adrenals, kidneys, and proximal GI tract a ppear unremarkable. Urinary bladder and reproductive organs are unremarkable with no pelvic free fluid and no acute colon ic abnormality identified. IMPRESSION: 1. No acute abnormality identified. Interval progression of metastatic disease which is primarily see n within the bones but now also seen in the lung bases. The primary differential considerations would be metastatic disease such as lung cancer versus multiple myeloma. Please note that the patient has severe spinal canal narrowing at several levels but overall greatest at L1. Signer Name: Cole Samuels MD Signed: 03/19/2019 7:54 PM Workstation Name: [id number]
[2019-03-19] MEDS ORDERED: SUBLIMAZE IV ONE (20:58)
[2019-03-19] MEDS ORDERED: ZOFRAN IV ONE (20:58)
[2019-03-20] MEDS ORDERED: ULTRAM PO ONE ×2 (02:46→14:11)
--- NOTE | 2019-03-20 14:13 | Consultation ---
History of Present Illness - Reason for Consult Consult date: 03/20/19 Reason for consult: Initial Psychiatric Evaluation - History of Present Psychiatric Illness Patient is a 58 year old female that presents to the emergency room with chief complaint s/p fall and suicidal ideations. Family states the patient has made suicidal statements over the past 2-3 weeks. Provider is unable to assess patient. Currently, patient is asleep. She refuses to awake. Per assigned RN patient speech is difficult to understand. [employer] Program Chair/provider unable to obtain pertinent information. Current Psychiatric Medications: Unable to Assess. Past Psychiatric History: Unable to Assess. Past Medication Trials: Unable to Assess. History of Trauma/Abuse: Unable to Assess. History of Alcohol Abuse: Unable to Assess. Family History of Psychiatric Illness/Substance Abuse: Unable to Assess. Social History: Unable to Assess. Medications and Allergies Allergies Allergy/AdvReac Type Severity Reaction Status Date / Time acetaminophen [From Tylenol] Allergy Rash Verified 01/06/19 09:03 aspirin Allergy Rash Verified 01/06/19 09:03 ibuprofen Allergy Rash Verified 01/06/19 09:03 Home Medications Medication Instructions Recorded Confirmed Last Taken Type traMADol [Ultram 50 MG tab] 50 mg PO Q4H PRN #20 tablet 12/27/18 03/19/19 Unknown Rx Anastrozole 1 mg PO DAILY 03/19/19 03/19/19 Unknown History Mental Status Exam - Vital signs Last Vital Signs Temp 97.6 F 03/20/19 09:00 Pulse 98 H 03/20/19 09:00 Resp 16 03/20/19 09:00 BP 153/94 03/20/19 09:00 Pulse Ox 100 03/20/19 09:00 - Exam Narrative exam: Provider unable to assess patient's mental status due to patient's condition. Results Result Diagrams: 03/19/19 17:38 03/19/19 17:38 Abnormal lab results 03/19/19 03/19/19 03/19/19 Range/Units 17:38 17:38 17:38 RBC 5.29 H (3.65-5.03) M/mm3 Hgb 15.7 H (10.1-14.3) gm/dl Hct 47.7 H (30.3-42.9) % RDW 12.8 L (13.2-15.2) % Seg Neutrophils % 80.2 H (40.0-70.0) % Seg Neutrophils # 8.6 H (1.8-7.7) K/mm3 Potassium 3.2 L (3.6-5.0) mmol/L Chloride 92.5 L (98-107) mmol/L Carbon Dioxide 32 H (22-30) mmol/L Glucose 207 H (65-100) mg/dL Calcium 11.5 H (8.4-10.2) mg/dL AST 57 H (5-40) units/L Alkaline Phosphatase 227 H (35-129) units/L Total Protein 8.9 H (6.3-8.2) g/dL Urine WBC (Auto) (0.0-6.0) /HPF Salicylates < 0.3 L (2.8-20.0) mg/dL Acetaminophen (10.0-30.0) ug/mL 03/19/19 03/19/19 Range/Units 17:38 18:00 RBC (3.65-5.03) M/mm3 Hgb (10.1-14.3) gm/dl Hct (30.3-42.9) % RDW (13.2-15.2) % Seg Neutrophils % (40.0-70.0) % Seg Neutrophils # (1.8-7.7) K/mm3 Potassium (3.6-5.0) mmol/L Chloride (98-107) mmol/L Carbon Dioxide (22-30) mmol/L Glucose (65-100) mg/dL Calcium (8.4-10.2) mg/dL AST (5-40) units/L Alkaline Phosphatase (35-129) units/L Total Protein (6.3-8.2) g/dL Urine WBC (Auto) 8.0 H (0.0-6.0) /HPF Salicylates (2.8-20.0) mg/dL Acetaminophen < 5.0 L (10.0-30.0) ug/mL All other labs normal. Assessment and Plan Assessment and plan: Impression: Provider unable to asses due to patient's condition. Patient is asleep. Refuses to awake. Recommendation/Plan: 1. Continue 1013. 2. Will reassess in 24 hours. 3. Attempt to gain collateral. Disposition: The patient was referred to inpatient psychiatric services. Pertinent information needed for acceptance to a psychiatric facility. Referred to [place]. Will staff with Dr. Genny Reid.
[2019-03-21] MEDS: SUBLIMAZE IV PRN ×2 (08:21→16:30)
--- NOTE | 2019-03-21 10:03 | Progress Note ---
Subjective - Reason for Consult Consult date: 03/21/19 Reason for consult: Psychiatry Follow-up - Chief Complaint Chief complaint: "I can't hear" 58 year old female that presents to the emergency room with chief complaint s/p fall and suicidal ideations. Today the patient was calm during the assessment. The psy assessment couldn't be completed because the patient is heating impaired. She gestured that she use hearing aids. Mental Status Exam - Vital signs Last Vital Signs Temp 97.6 F 03/21/19 08:12 Pulse 109 H 03/21/19 08:12 Resp 16 03/21/19 08:12 BP 189/122 03/21/19 08:12 Pulse Ox 96 03/21/19 08:12 - Exam Narrative exam: Unable to complete the MSE because of the patient's condition. Assessment and Plan Impression: Today the patient was calm, but the psy assessment could not be completed because the patient is hearing impaired. Recommendation/Plan: Continue 1013. Will reassess the patient once she have her hearing aids. The patient's assigned nurse was informed that the patient;s hearing aids are needed. Will staff with Dr. Genny Reid.
[2019-03-21] MEDS ORDERED: ATIVAN IV ONE (13:35)
[2019-03-21] MEDS ORDERED: ATIVAN ONE (13:38)
[2019-03-21] MEDS ORDERED: KEPPRA 1,000 MG/NS 0.75% 100ML 1,000 MG/100 ML BAG IV ONE (13:39)
[2019-03-21 14:31] LABS: Basophils # (Auto) 0.1 K/mm3 (0.0-0.1); Basophils % (Auto) 0.4 % (0.0-1.8); Hematocrit 41.8 % (30.3-42.9); Hemoglobin 13.9 gm/dl (10.1-14.3); Lymphocytes # (Auto) 1.3 K/mm3 (1.2-5.4); Lymphocytes % (Auto) 10.9 % (13.4-35.0); Mean Corpuscular HGB Conc 33 % (30-34); Mean Corpuscular Volume 91 fl (79-97); Monocytes # (Auto) 0.9 K/mm3 (0.0-0.8); Monocytes % (Auto) 7.8 % (0.0-7.3); Platelet Count 353 K/mm3 (140-440); Red Blood Count 4.62 M/mm3 (3.65-5.03)
[2019-03-21] MEDS ORDERED: NACL 0.9% 1000 ML 1,000 ML IV ONE (14:36)
[2019-03-21] MEDS ORDERED: NACL 0.9% 1000 ML 1,000 ML ONE (14:38)
[2019-03-21 14:50] LABS: BUN/Creatinine Ratio 18; Blood Urea Nitrogen 11 mg/dL (7-17); Hemolysis Index 11
--- NOTE | 2019-03-21 15:04 | Cat Scan Report ---
CT HEAD WITHOUT CONTRAST INDICATION : new-onset seizure. TECHNIQUE: Axial imaging performed from the skull apex through the skull base without the use of con trast. All CT scans at this location are performed using CT dose reduction for ALARA by means of aut omated exposure control. COMPARISON: 03/19/2019 FINDINGS: Parenchyma: No acute intracranial hemorrhage or parenchymal abnormality. No evidence for hemorrhage or abnormal brain density. Ventricles: Ventricles are normal in size and appear symmetric. Bones: Numerous lytic calvarial lesions are again identified and unchanged. The largest lesion measu res 2.5 cm in the left posterior frontal bone. Sinuses: Sinuses and mastoid air cells are clear. Soft tissues: No significant abnormality. IMPRESSION: No acute intracranial process is identified. Numerous lytic calvarial lesions are again n oted suggestive of multiple myeloma or metastatic disease. No change is demonstrated since 03/19/2019. Signer Name: Kameron Walton Jr, MD Signed: 03/21/2019 3:00 PM Workstation Name: [id number]
--- NOTE | 2019-03-21 15:15 | Emergency Department Report ---
Blank Doc - Documentation Documentation: Informed by nurse that the patient had a focal seizure involving the right side of her face lasting seconds. Patient had a rightward gaze so subsequently a repeat head CT was ordered and the patient was given Ativan in addition to Keppra [address] scan does not reveal any new abnormalities compared to previous CT scan the patient remains postictal. Will admit the patient to the hospital medically for further evaluation of new onset seizures [facility] [address] [place] [address] Cat Scan Report Signed Patient: MAYUR SIEGEL MR#: [id number] : 1960 Acct:[id number] Age/Sex: 58 / F ADM Date: 03/19/19 Loc: ED Attending Dr: Ordering Physician: MEDHAT MALONE MD Date of Service: 03/21/19 Procedure(s): CT head/brain wo con Accession Number(s): [id number] cc: MEDHAT MALONE MD CT HEAD WITHOUT CONTRAST INDICATION : new-onset seizure. TECHNIQUE: Axial imaging performed from the skull apex through the skull base without the use of contrast. All CT scans at this location are performed using CT dose reduction for ALARA by means of automated exposure control. COMPARISON: 03/19/2019 FINDINGS: Parenchyma: No acute intracranial hemorrhage or parenchymal abnormality. No evidence for hemorrhage or abnormal brain density. Ventricles: Ventricles are normal in size and appear symmetric. Bones: Numerous lytic calvarial lesions are again identified and unchanged. The largest lesion measures 2.5 cm in the left posterior frontal bone. Sinuses: Sinuses and mastoid air cells are clear. Soft tissues: No significant abnormality. IMPRESSION: No acute intracranial process is identified. Numerous lytic calvarial lesions are again noted suggestive of multiple myeloma or metastatic disease. No change is demonstrated since 019. Signer Name: Kameron Walton Jr, MD Signed: 03/21/2019 3:00 PM Workstation Name: [id number] Transcribed By: TTR Dictated By: KAMERON WALTON JR, MD Electronically Authenticated By: KAMERON WALTON JR, MD Signed Date/Time: 03/21/19 1500 DD/ 1455 TD/TT: 15:15 Hospitalist paged (Dr Mcknight)
[2019-03-21] MEDS ORDERED: MAGNESIUM SULFATE 2GM/50ML 2 GM/50 ML BAG IV ONE (15:30)
[2019-03-21 15:33] LABS: Calcium > 13.0 mg/dL (8.4-10.2)
[2019-03-21] MEDS ORDERED: KCL 10MEQ/100ML 10 MEQ/100 ML BAG IV ONE (16:00)
[2019-03-21] MEDS ORDERED: SUBLIMAZE ONE (16:27)
[2019-03-21] MEDS ORDERED: AREDIA 90 MG in NACL 0.9% 1000 ML 1,000 ML IV ONE (16:30)
[2019-03-21] MEDS: KCL 10MEQ/100ML 10 MEQ/100 ML BAG IV SCH ×2 (16:39→22:30)
[2019-03-21] MEDS ORDERED: ZOFRAN IV PRN (21:33)
[2019-03-21] MEDS ORDERED: SODIUM CHLORIDE FLUSH SYRINGE 10 ML IV PRN (21:33)
[2019-03-21] MEDS ORDERED: TYLENOL PO PRN (21:33)
[2019-03-21] MEDS ORDERED: D5NS 1,000 ML IV SCH (22:00)
[2019-03-21] MEDS: PEPCID IV SCH (22:04)
[2019-03-21] MEDS: KEPPRA 750 MG in D5W 100 ML IV SCH (22:14)
[2019-03-21] MEDS: MIACALCIN SUB-Q SCH (22:17)
[2019-03-21] MEDS: SODIUM CHLORIDE FLUSH SYRINGE 10 ML IV SCH (22:18)
[2019-03-22] MEDS: KCL 10MEQ/100ML 10 MEQ/100 ML BAG IV SCH ×3 (00:52→19:29)
--- NOTE | 2019-03-22 02:12 | Event Note ---
Date: 03/21/19 See H/p in reports New onset seizures AMS Breasr Ca with mets DNR
[2019-03-22] MEDS ORDERED: K-DUR PO ONE (02:19)
[2019-03-22] MEDS ORDERED: MAGNESIUM SULFATE 2GM/50ML 2 GM/50 ML BAG IV ONE (02:20)
--- NOTE | 2019-03-22 02:54 | History and Physical Report ---
CHIEF COMPLAINT: New onset seizures while in the Emergency Room. HISTORY OF PRESENT ILLNESS: A 58-year-old female with a history of cancer and suicidal ideation, was kept in the ER for transportation to a psych facility for suicidal ideation. The patient has been making suicidal statements for the last 2-3 weeks. Has been feeling suicidal for several weeks. The patient apparently stumbled and fell 2 days ago on 03/19/2019. From then, the patient has been in the Emergency Room. While in the Emergency Room, she had seizures, especially involuntary movements in the head. No generalized tonic-clonic movements. Followed by altered sensorium and decreased responsiveness. PAST MEDICAL HISTORY: Significant for breast cancer with bone metastasis, stage IV; hepatitis C. PAST SURGICAL HISTORY: Left mastectomy. FAMILY HISTORY: No significant family history. SOCIAL HISTORY: Former smoker and cocaine user. CURRENT MEDICATIONS: Tramadol, Percocet and oxycodone 15 mg q.6 p.r.n. REVIEW OF SYSTEMS: Significant for new onset seizures and altered sensorium. Rightward gaze present. Also appears dehydrated. Otherwise, review of systems negative. PHYSICAL EXAMINATION: GENERAL: Young elderly female, looks cachectic. VITAL SIGNS: Temperature 97.6, pulse is 125, respirations are 26, blood pressure 121/89. HEENT: Unremarkable. Pupils equal and reactive. Tongue dry. NECK: Supple, no lymphadenopathy, no thyromegaly. LUNGS: Clear to auscultation and percussion. Good air entry. CARDIOVASCULAR: S1, S2 heard. No gallop, no murmur, no rub. Apical impulse in left fifth intercostal space in midclavicular line. ABDOMEN: Soft and benign. No hepatosplenomegaly. No guarding, no rigidity. Hernial orifices are normal. EXTREMITIES: Good pedal pulses. No pedal edema. CENTRAL NERVOUS SYSTEM: Lethargic. The patient also drowsy. Unable to wake her up. History obtained from the chart. LABORATORY DATA: Significant for white count of 10,700, hemoglobin of 15.7 and hematocrit of 47.7, platelet count of 372,000. Sodium is 140, potassium is 3.2, BUN and creatinine is 13 and 0.7. Magnesium is 1.6, AST is 57, slightly high. Total protein is 8.9, albumin is 4.0, alkaline phosphatase is 227. Urine wbc 8.0. Drug screen negative for everything. IMAGING: Head CT was normal. Abdominal CAT scan, no acute abnormality. Interval progression of metastatic disease, which is primarily within the bones, but no ulcers seen in the lung bases. Metastasis from breast cancer. Also, lumbar spine x-ray shows bony metastasis. EKG shows sinus tachycardia. ASSESSMENT AND PLAN: 1. New onset seizure disorder. The patient is started on IV Keppra and required bridge over to p.o. Keppra. 2. Breast cancer with metastasis, poor prognosis. The patient has signed DNR/AND forms. The patient to get hospice evaluation. 3. Acute dehydration. IV fluids. 4. Hypokalemia, supplemented. 5. Hypomagnesemia, supplemented. 6. Hyperglycemia. Coverage for now. 7. Hypercalcemia. Pamidronate and calcitriol given. 8. Deep venous thrombosis prophylaxis, Lovenox 40 q.24. 9. Gastrointestinal prophylaxis. JOB# [id number] VSM/NTS
[2019-03-22] MEDS: POTASSIUM CHLORIDE PO ONE ×2 (03:14→03:16)
--- NOTE | 2019-03-22 06:45 | Progress Note ---
Assessment and Plan Assessment and plan: Patient is a 58 yo woman with a history of left breast cancer s/p mastectomy with bone metastasis, stage IV cancer, former tobacco and cocaine user and hepatitis C who presents to [facility] ED from psych facility for suicidal ideation with taking pills to overdose. She apparently stumbled and fell 2 days prior to coming here. While in ED, she had a witnessed seizure with AMS. * CT head without contrast IMPRESSION: No acute intracranial process is identified. Numerous lytic calvarial lesions are again noted suggestive of multiple myeloma or metastatic disease. No change is demonstrated since 03/19/2019. * CT abd/pelvis with IV constrast IMPRESSION: 1. No acute abnormality identified. Interval progression of metastatic disease which is primarily seen within the bones but now also seen in the lung bases. The primary differential considerations would be metastatic disease such as lung cancer versus multiple myeloma. Please note that the patient has severe spinal canal narrowing at several levels but overall greatest at L1. New Onset Seizure most likely related to metastatic brain lesions: treat with iv keppra, consult Neurology Acute metabolic encephalopathy, related to the above Metastatic breast cancer to the bone and now to the brain and lungs suspect: consulted heme/onc, supportive care Hypokalemia: replete and monitor bmp closely Hypomagnesemia: replete and monitor levels closely Hypercalcemia due to mets: treated with Pamidronate and calcitriol DVT prophylaxis: sq lovenox Suicidal ideation: consult mental health, on 1013 Mechanical fall: consult PT poor prognosis, agonal breathing DNR Met with daughter Aneta at bedside, DNR form sign will re-send 1013 and discharge to inpatient hospice give iv morphine CCT 32 minutes History Interval history: Patient was seen and examined. Follow-up on current diagnosis of SI, fall, new seizures. No overnight events reported to me. Patient denies any chest pain, shortness breath, nausea/vomiting or severe headaches. Imaging, nursing note, art, labs and old chart reviewed. Discussed with patient. Hospitalist Physical - Physical exam Narrative exam: Gen: ill appearing, NAD, Awake, Alert, Orientated HEENT: NCAT, EOMI, PERRL, OP Clear Neck: supple, no adenopathy, no thyromegaly, no JVD CVS/Heart: RRR, normal S1S2, pulses present bilaterally Chest/Lungs: CTA B, Symmetrical chest expansion, good air entry bilaterally GI/Abdomen: soft, NTND, good bowel sounds, no guarding or rebound /Bladder: no suprapubic tenderness, no CVA or paraspinal tenderness Extermity/Skin: no c/c/e, no obvious rash MSK: FROM x 4 Neuro: CN 2-12 grossly intact, no new focal deficits Psych: calm - Constitutional Vitals: Temp Pulse Resp BP Pulse Ox 98.9 F 135 H 40 H 138/99 95 03/22/19 05:18 03/22/19 05:14 03/22/19 05:14 03/22/19 05:14 03/22/19 05:14 Results - Labs CBC & Chem 7: 03/22/19 06:47 03/22/19 06:47 Labs: Laboratory Last Values WBC 12.2 K/mm3 (4.5-11.0) H 03/21/19 14:20 RBC 4.62 M/mm3 (3.65-5.03) 03/21/19 14:20 Hgb 13.9 gm/dl (10.1-14.3) 03/21/19 14:20 Hct 41.8 % (30.3-42.9) 03/21/19 14:20 MCV 91 fl (79-97) 03/21/19 14:20 MCH 30 pg (28-32) 03/21/19 14:20 MCHC 33 % (30-34) 03/21/19 14:20 RDW 13.0 % (13.2-15.2) L 03/21/19 14:20 Plt Count 353 K/mm3 (140-440) 03/21/19 14:20 Lymph % (Auto) 10.9 % (13.4-35.0) L 03/21/19 14:20 [place] % (Auto) 7.8 % (0.0-7.3) H 03/21/19 14:20 Eos % (Auto) 0.0 % (0.0-4.3) 03/21/19 14:20 Baso % (Auto) 0.4 % (0.0-1.8) 03/21/19 14:20 Lymph # 1.3 K/mm3 (1.2-5.4) 03/21/19 14:20 [place] # 0.9 K/mm3 (0.0-0.8) H 03/21/19 14:20 Eos # 0.0 K/mm3 (0.0-0.4) 03/21/19 14:20 Baso # 0.1 K/mm3 (0.0-0.1) 03/21/19 14:20 Seg Neutrophils % 80.9 % (40.0-70.0) H 03/21/19 14:20 Seg Neutrophils # 9.8 K/mm3 (1.8-7.7) H 03/21/19 14:20 Sodium 136 mmol/L (137-145) L 03/21/19 14:20 Potassium 3.1 mmol/L (3.6-5.0) L 03/21/19 14:20 Chloride 95.6 mmol/L (98-107) L 03/21/19 14:20 Carbon Dioxide 29 mmol/L (22-30) 03/21/19 14:20 15 mmol/L 03/21/19 14:20 BUN 11 mg/dL (7-17) 03/21/19 14:20 0.6 mg/dL (0.7-1.2) L 03/21/19 14:20 Estimated GFR > 60 ml/min 03/21/19 14:20 18 % 03/21/19 14:20 Glucose 120 mg/dL (65-100) H 03/21/19 14:20 Calcium > 13.0 mg/dL (8.4-10.2) H* 03/21/19 14:20 Magnesium 1.60 mg/dL (1.7-2.3) L 03/21/19 14:20 1.10 mg/dL (0.1-1.2) 03/19/19 17:38 AST 57 units/L (5-40) H 03/19/19 17:38 ALT 24 units/L (7-56) 03/19/19 17:38 227 units/L (35-129) H 03/19/19 17:38 8.9 g/dL (6.3-8.2) H 03/19/19 17:38 4.0 g/dL (3.9-5) 03/19/19 17:38 0.8 % 03/19/19 17:38 TSH 2.280 mlU/mL (0.270-4.200) 03/19/19 17:38 Free T4 1.28 ng/dL (0.76-1.46) 03/19/19 17:38 Yellow (Yellow) 03/19/19 18:00 Cloudy (Clear) 03/19/19 18:00 7.0 (5.0-7.0) 03/19/19 18:00 Ur Specific [place] 1.006 (1.003-1.030) 03/19/19 18:00 <15 mg/dl mg/dL (Negative) 03/19/19 18:00 Neg mg/dL (Negative) 03/19/19 18:00 Neg mg/dL (Negative) 03/19/19 18:00 Neg (Negative) 03/19/19 18:00 Neg (Negative) 03/19/19 18:00 Neg (Negative) 03/19/19 18:00 < 2.0 mg/dL (<2.0) 03/19/19 18:00 Ur Leukocyte Esterase Mod (Negative) 03/19/19 18:00 8.0 /HPF (0.0-6.0) H 03/19/19 18:00 4.0 /HPF (0.0-6.0) 03/19/19 18:00 U Epithel Cells (Auto) 13.0 /HPF (0-13.0) 03/19/19 18:00 Amorphous Crystals Few 03/19/19 18:00 Few /HPF 03/19/19 18:00 Salicylates < 0.3 mg/dL (2.8-20.0) L 03/19/19 17:38 Presumptive negative 03/19/19 18:00 Presumptive negative 03/19/19 18:00 Acetaminophen < 5.0 ug/mL (10.0-30.0) L 03/19/19 17:38 Ur Barbiturates Screen Presumptive negative 03/19/19 18:00 Ur Phencyclidine Scrn Presumptive negative 03/19/19 18:00 Ur Amphetamines Screen Presumptive negative 03/19/19 18:00 U Benzodiazepines Scrn Presumptive negative 03/19/19 18:00 Presumptive negative 03/19/19 18:00 U Marijuana (THC) Screen Presumptive negative 03/19/19 18:00 Disclamer 03/19/19 18:00 Plasma/Serum Alcohol < 0.01 % (0-0.07) 03/19/19 17:38 Blood Type O POSITIVE 03/19/19 17:41 Antibody Screen Negative 03/19/19 17:41 Active Medications - Current Medications Current Medications: Generic Name Dose Route Start Last Admin Trade Name Rubio PRN Reason Stop Dose Admin Calcitonin [place] 50 unit 03/21/19 22:00 03/21/19 22:17 Miacalcin SUB-Q 50 unit Q12HR SHARI Administration Famotidine 20 mg 03/21/19 22:00 03/21/19 22:04 Pepcid IV 20 mg BID SHARI Administration Fentanyl 50 mcg 03/21/19 08:12 03/21/19 16:30 Sublimaze IV 50 mcg Q4H PRN Administration Pain , Severe (7-10) Hydromorphone HCl 1 mg 03/21/19 21:33 Dilaudid IV Q3H PRN Pain , Severe (7-10) Dextrose/Sodium Chloride 1,000 mls @ 125 mls/hr 03/21/19 22:00 03/21/19 22:18 D5ns IV 125 mls/hr DIRECT SHARI Administration Levetiracetam 750 mg/ Dextrose 107.5 mls @ 400 mls/hr 03/21/19 22:00 03/21/19 22:14 IV 400 mls/hr Q12HR SHARI Administration Ondansetron HCl 4 mg 03/21/19 21:33 Zofran IV Q8H PRN Nausea And Vomiting Sodium Chloride 10 ml 03/21/19 22:00 03/21/19 22:18 Sodium Chloride Flush Syringe 10 Ml IV 10 ml BID SHARI Administration Sodium Chloride 10 ml 03/21/19 21:33 Sodium Chloride Flush Syringe 10 Ml IV PRN PRN LINE FLUSH
[2019-03-22 07:38] LABS: Basophils # (Auto) 0.1 K/mm3 (0.0-0.1); Basophils % (Auto) 0.4 % (0.0-1.8); Hematocrit 43.1 % (30.3-42.9); Hemoglobin 14.2 gm/dl (10.1-14.3); Lymphocytes # (Auto) 1.6 K/mm3 (1.2-5.4); Lymphocytes % (Auto) 12.1 % (13.4-35.0); Mean Corpuscular HGB Conc 33 % (30-34); Mean Corpuscular Volume 91 fl (79-97); Monocytes # (Auto) 1.1 K/mm3 (0.0-0.8); Monocytes % (Auto) 8.2 % (0.0-7.3); Red Blood Count 4.76 M/mm3 (3.65-5.03); Red Cell Distribution Width 13.4 % (13.2-15.2)
--- NOTE | 2019-03-22 08:03 | Event Note ---
Date: 03/22/19 [id number]
[2019-03-22 08:11] LABS: Alanine Aminotransferase 19 units/L (7-56); Albumin 3.4 g/dL (3.9-5); BUN/Creatinine Ratio 17; Blood Urea Nitrogen 10 mg/dL (7-17); Hemolysis Index 13
[2019-03-22 08:18] LABS: Calcium 12.6 mg/dL (8.4-10.2)
[2019-03-22 08:37] LABS: Platelet Count 364 K/mm3 (140-440)
--- NOTE | 2019-03-22 09:12 | Consultation ---
History of Present Illness - Reason for Consult hypernatremia, other (hypercalcemia) - History of Present Illness 58 y/o AAF, frail, elderly, with PMHx significant for metastatic breast cancer with extensive bone metastasis, who initially presented to the ED secondary to suicidal ideation and pending transfer to psychiatric facility, was found to be significantly altered and had seizures in the ER. Initial laboratory evaluation was concerning for significant hypercalcemia for which nephrology is consulted at this time. patient ahs been receiving continuos IVF hydration, and has received a dose of pamidronate IV. She is pending dose of salmon calcitonin. Serum calcium are slightly lower this morning. She is essentially non-verbal/non communicative and [facility] staff she has been this way since coming to the general medical floor. She has also received loading dose of keprra. No recurrent episodes of seizures overnight. She is DNR, and her overall prognosis from the metastatic breast cancer. Per primary note, hospice evaluation is also pending at this time. Past History Past Medical History: cancer, hepatitis Past Surgical History: Other (left mastectomy ) Social history: other (former smoker and cocaine user) Family history: no significant family history Medications and Allergies Allergies Allergy/AdvReac Type Severity Reaction Status Date / Time acetaminophen [From Tylenol] Allergy Rash Verified 01/06/19 09:03 aspirin Allergy Rash Verified 01/06/19 09:03 ibuprofen Allergy Rash Verified 01/06/19 09:03 Home Medications Medication Instructions Recorded Confirmed Last Taken Type traMADol [Ultram 50 MG tab] 50 mg PO Q4H PRN #20 tablet 12/27/18 03/19/19 Unknown Rx Anastrozole 1 mg PO DAILY 03/19/19 03/19/19 Unknown History Active Meds: Active Medications Calcitonin [place] (Miacalcin) 50 unit SUB-Q Q12HR [facility] Last Admin: 03/21/19 22:17 Dose: 50 unit Documented by: Famotidine (Pepcid) 20 mg IV BID [facility] Last Admin: 03/21/19 22:04 Dose: 20 mg Documented by: Fentanyl (Sublimaze) 50 mcg IV Q4H PRN PRN Reason: Pain , Severe (7-10) Last Admin: 03/21/19 16:30 Dose: 50 mcg Documented by: Hydromorphone HCl (Dilaudid) 1 mg IV Q3H PRN PRN Reason: Pain , Severe (7-10) Levetiracetam 750 mg/ Dextrose 107.5 mls @ 400 mls/hr IV Q12HR [facility] Last Admin: 03/21/19 22:14 Dose: 400 mls/hr Documented by: Ondansetron HCl (Zofran) 4 mg IV Q8H PRN PRN Reason: Nausea And Vomiting Sodium Chloride (Sodium Chloride Flush Syringe 10 Ml) 10 ml IV BID [facility] Last Admin: 03/21/19 22:18 Dose: 10 ml Documented by: Sodium Chloride (Sodium Chloride Flush Syringe 10 Ml) 10 ml IV PRN PRN PRN Reason: LINE FLUSH Review of Systems ROS unobtainable: due to mental status Exam - Vital Signs Vital signs: Vital Signs Temp Pulse Resp BP Pulse Ox 98.7 F 136 H 20 127/101 97 03/19/19 17:10 03/19/19 17:10 03/19/19 17:10 03/19/19 17:10 03/19/19 17:10 - General Appearance General appearance: cachectic, chronically ill, fatigue, frail EENT: ATNC, PERRL Neck: Present: neck supple, trachea midline Respiratory: Clear to Ascultation Heart: regular, S1S2 Gastrointestinal: Present: normal, normoactive bowel sounds Integumentary: no rash, warm and dry Neurologic: other (non verbal, non communicative ) Musculoskeletal: Present: other (-edema ) Results - Lab Results 03/22/19 06:47 03/22/19 06:47 Most recent lab results Calcium 12.6 mg/dL (8.4-10.2) H* 03/22/19 06:47 Magnesium 1.60 mg/dL (1.7-2.3) L 03/21/19 14:20 Assessment and Plan - Patient Problems (1) Hypercalcemia Current Visit: Yes Status: Acute Plan to address problem: Agree with current regimen. Would favor to restart patient on IVF hydration. Will also give one dose of lasix 40 mg IV once. Continue with daily administration of salmon-calcitonin. Patient has already received dose of pamidronate. Will monitor closely. Overall prognosis is poor at this time. (2) Hypernatremia Current Visit: Yes Status: Acute Plan to address problem: In the setting of dehydration from lack of access to free water given her altered mental status and thirst sensorium. Continue with continuos IVF hydration. (3) Suicidal ideation Current Visit: Yes Status: Acute Plan to address problem: Management per primary team, psychiatry. (4) Breast cancer Current Visit: No Status: Chronic Qualifiers: Laterality: unspecified laterality Plan to address problem: With evidence of extensive bone metastasis. Overall poor prognosis. Will monitor. Pending hospice evaluation.
[2019-03-22] MEDS ORDERED: LASIX IV ONE (09:27)
[2019-03-22] MEDS: MIACALCIN SUB-Q SCH ×2 (09:36→22:21)
[2019-03-22] MEDS: PEPCID IV SCH ×2 (09:37→22:20)
[2019-03-22] MEDS: SODIUM CHLORIDE FLUSH SYRINGE 10 ML IV SCH ×2 (09:42→22:21)
[2019-03-22] MEDS: KEPPRA 750 MG in D5W 100 ML IV SCH (09:45)
[2019-03-22] MEDS: D5/0.45NS 1,000 ML IV SCH ×2 (09:46→17:57)
[2019-03-22] MEDS ORDERED: MORPHINE IV PRN (14:11)
--- NOTE | 2019-03-22 14:27 | Discharge Summary ---
Providers - Providers Date of Admission: 03/21/19 15:23 Date of discharge: 03/24/19 Attending physician: MARY KAY GONSALEZ 03/21/19 15:53 Consult to Physician [CONS] Urgent Comment: Consulting Provider: CLARENCE MOTLEY Physician Instructions: Reason For Exam: hypercalcemia 03/21/19 21:33 Consult to Physician [CONS] Routine Comment: Consulting Provider: ADDY QUINTANILLA Physician Instructions: Reason For Exam: breast CA with metastasis 03/21/19 21:39 Consult to Case Management [CONS] Routine Services Needed at Discharge: Home Health Services [employer] Other Notified:: case management Comment:: Hospice 03/22/19 06:34 Consult to Mental Health [CONS] Urgent Reason For Exam: psych 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 Notified:: awaiting call back Comment:: fax to [phone] 03/22/19 12:17 Consult to Case Management [CONS] Routine Services Needed at Discharge: Other Notified:: Ayesha Time called:: 12:18 Comment:: assess for inpt hospice Primary care physician: JULIANO FREEMAN Hospitalization Condition: Poor Hospital course: Patient is a 58 yo woman with a history of left breast cancer s/p mastectomy with bone metastasis, stage IV cancer, former tobacco and cocaine user and hepatitis C who presents to [facility] ED from psych facility for suicidal ideation with taking pills to overdose. She apparently stumbled and fell 2 days prior to coming here. While in ED, she had a witnessed seizure with AMS. * CT head without contrast IMPRESSION: No acute intracranial process is identified. Numerous lytic calvarial lesions are again noted suggestive of multiple myeloma or metastatic disease. No change is demonstrated since 03/19/2019. * CT abd/pelvis with IV constrast IMPRESSION: 1. No acute abnormality identified. Interval progression of metastatic disease which is primarily seen within the bones but now also seen in the lung bases. The primary differential considerations would be metastatic disease such as lung cancer versus multiple myeloma. Please note that the patient has severe spinal canal narrowing at several levels but overall greatest at L1. New Onset Seizure most likely related to metastatic brain lesions: treat with iv keppra, consult Neurology Acute hypoxic respiratory failure, poa: continue o2 supplementation Acute metabolic encephalopathy, related to the above Metastatic breast cancer to the bone and now to the brain and lungs suspect: consulted heme/onc, supportive care Hypokalemia: replete and monitor bmp closely Hypomagnesemia: replete and monitor levels closely Hypercalcemia due to mets: treated with Pamidronate and calcitriol DVT prophylaxis: sq lovenox Suicidal ideation: consult mental health, on 1013 Mechanical fall: consult PT poor prognosis, agonal breathing DNR Met with rosy Cornell at bedside, DNR form sign by daughter, will re-send 101 and discharge to inpatient hospice once bed is available [facility]: [facility] ([facility]) Time spent for discharge: 35 minutes Core Measure Documentation - Palliative Care Palliative Care/ Comfort Measures: Not Applicable - Core Measures Any of the following diagnoses?: none - VTE Discharge Requirements Deep Vein Thrombosis/Pulmonary Embolism Present on Admission: No Has pt received <5 days of overlap therapy or INR<2.0: No Anticoagulant overlap therapy prescribed at discharge: No Contraindication No Overlap Therapy order at DC: Not Indicated Exam - Physical Exam Narrative exam: Gen: ill appearing, agonal breathing HEENT: NCAT, left eye disconjugate, looking up to the left, PERRL, OP dry, mouth open Neck: supple, no adenopathy, no thyromegaly, no JVD CVS/Heart: Regular tachy, normal S1S2, pulses present bilaterally Chest/Lungs: congested, Symmetrical chest expansion, poor air entry bilaterally GI/Abdomen: distended, hypo bowel sounds, no guarding or rebound /Bladder: no suprapubic tenderness, no CVA or paraspinal tenderness Extermity/Skin: poor skin tuguor MSK: not moving Neuro: not following commands Psych: unresponsive - Constitutional Vitals: Temp Pulse Resp BP Pulse Ox 98.5 F 134 H 32 H 157/100 98 03/22/19 07:48 03/22/19 07:48 03/22/19 07:48 03/22/19 07:48 03/22/19 07:48 Plan Activity: fall precautions, other (no strenous activity) Follow up with: ALYSSA GOMEZ MD [Referring] - 3-5 Days
--- NOTE | 2019-03-22 14:31 | Progress Note ---
Subjective - Reason for Consult Consult date: 03/22/19 Reason for consult: Psychiatry Follow-up - Chief Complaint Chief complaint: "The patient cannot participate in the assessment" 58 year old female that presents to the emergency room with chief complaint s/p fall and suicidal ideations. Today the patient could not participate in the assessment. Per the notes, the patient had a seizure yesterday afternoon and was admitted to hospital. The patient was experiencing labored breathing. Also, the patient did not respond to commands. The patient's presentation was reported to the assigned nurse and charge nurse. Mental Status Exam - Vital signs Last Vital Signs Temp 98.5 F 03/22/19 07:48 Pulse 134 H 03/22/19 07:48 Resp 32 H 03/22/19 07:48 BP 157/100 03/22/19 07:48 Pulse Ox 98 03/22/19 07:48 - Exam Narrative exam: Unable to complete the MSE because of the patient's condition. Assessment and Plan Impression: Today the patient could not participate in the assessment. Recommendation/Plan: Per case mgmt, the patient's 1013 will be rescinded by the hospitalist. Psy sign off. Dispo: The patient is pending hospice care. Staffed with Dr. Genny Reid.
[2019-03-22] MEDS: DILAUDID IV PRN ×2 (14:45→17:57)
[2019-03-22] MEDS ORDERED: KEPPRA 1,000 MG in D5W 100 ML IV SCH (15:00)
[2019-03-22] MEDS ORDERED: KEPPRA 1,000 MG/NS 0.75% 100ML 1,000 MG/100 ML BAG IV SCH (15:00)
[2019-03-22] MEDS: KEPPRA 1,000 MG in D5W 100 ML IV SCH (22:20)
[2019-03-23] MEDS: D5/0.45NS 1,000 ML IV SCH ×3 (00:41→17:40)
[2019-03-23] MEDS: DILAUDID IV PRN ×3 (04:34→22:43)
[2019-03-23] MEDS: MIACALCIN SUB-Q SCH ×2 (09:22→22:42)
[2019-03-23] MEDS: PEPCID IV SCH ×2 (09:25→22:42)
[2019-03-23] MEDS: SODIUM CHLORIDE FLUSH SYRINGE 10 ML IV SCH ×2 (09:26→22:42)
--- NOTE | 2019-03-23 10:59 | Progress Note ---
Assessment and Plan - Patient Problems (1) Hypercalcemia Current Visit: Yes Status: Acute Plan to address problem: Agree with current regimen. Overall prognosis is poor at this time. Pending hospice transfer (2) Hypernatremia Current Visit: Yes Status: Acute Plan to address problem: In the setting of dehydration from lack of access to free water given her altered mental status and thirst sensorium. Continue with continuos IVF hydration. (3) Suicidal ideation Current Visit: Yes Status: Acute Plan to address problem: Management per primary team, psychiatry. (4) Breast cancer Current Visit: No Status: Chronic Qualifiers: Laterality: unspecified laterality Plan to address problem: With evidence of extensive bone metastasis. Overall poor prognosis. Will monitor. Pending hospice evaluation. Subjective Date of service: 03/23/19 Interval history: No acute changes overnight. No new labs this morning for review. Pending hospice placement this time. Objective - Vital Signs Vital signs: Vital Signs - 12hr 03/23/19 03/23/19 03/23/19 00:05 00:07 05:21 Temperature 98.1 F Pulse Rate 123 H 122 H Respiratory 24 20 Rate Blood Pressure 143/94 147/91 O2 Sat by Pulse 94 96 Oximetry 03/23/19 08:05 Temperature 97.4 F L Pulse Rate 117 H Respiratory 16 Rate Blood Pressure 149/97 O2 Sat by Pulse 96 Oximetry - General Appearance General appearance: moderate distress, chronically ill, frail EENT: ATNC, PERRL Neck: no thyromegaly Respiratory: Present: Decreased Breath Sounds Cardiology: regular, S1S2 Gastrointestinal: normal, normoactive bowel sounds Integumentary: no rash, warm and dry Neurologic: other (nonverbal, noncommunicative) Musculoskeletal: other Psychiatric: mood/affect appropriate, cooperative - Lab 03/22/19 06:47 03/22/19 06:47 Most recent lab results Calcium 12.6 mg/dL (8.4-10.2) H* 03/22/19 06:47 Magnesium 1.60 mg/dL (1.7-2.3) L 03/21/19 14:20 - Allied health notes Allied health notes reviewed: nursing Medications & Allergies - Medications Allergies/Adverse Reactions: Allergies acetaminophen [From Tylenol] Allergy (Verified 01/06/19 09:03) Rash aspirin Allergy (Verified 01/06/19 09:03) Rash ibuprofen Allergy (Verified 01/06/19 09:03) Rash Home Medications: Home Medications Medication Instructions Recorded Confirmed Last Taken Type traMADol [Ultram 50 MG tab] 50 mg PO Q4H PRN #20 tablet 12/27/18 03/19/19 Unknown Rx Anastrozole 1 mg PO DAILY 03/19/19 03/19/19 Unknown History HYDROmorphone [Dilaudid] 1 mg IV Q3H PRN #1 syringe 03/22/19 Unknown Rx Active Medications: Generic Name Dose Route Start Last Admin Trade Name Freq PRN Reason Stop Dose Admin Calcitonin [place] 50 unit 03/21/19 22:00 03/23/19 09:22 Miacalcin SUB-Q 50 unit Q12HR SHARI Administration Famotidine 20 mg 03/21/19 22:00 03/23/19 09:25 Pepcid IV 20 mg BID SHARI Administration Hydromorphone HCl 1 mg 03/21/19 21:33 03/23/19 04:34 Dilaudid IV 1 mg Q3H PRN Administration Pain , Severe (7-10) Dextrose/Sodium Chloride 1,000 mls @ 125 mls/hr 03/22/19 10:00 03/23/19 09:15 D5/0.45ns IV 125 mls/hr DIRECT SHARI Administration Levetiracetam 1,000 mg/ 110 mls @ 400 mls/hr 03/22/19 22:00 03/22/19 22:20 Dextrose IV 400 mls/hr Q12HR SHARI Administration Ondansetron HCl 4 mg 03/21/19 21:33 03/22/19 14:44 Zofran IV 4 mg Q8H PRN Administration Nausea And Vomiting Sodium Chloride 10 ml 03/21/19 22:00 03/23/19 09:26 Sodium Chloride Flush Syringe 10 Ml IV 10 ml BID SHARI Administration Sodium Chloride 10 ml 03/21/19 21:33 Sodium Chloride Flush Syringe 10 Ml IV PRN PRN LINE FLUSH
[2019-03-23] MEDS: KEPPRA 1,000 MG in D5W 100 ML IV SCH ×2 (11:24→22:42)
--- NOTE | 2019-03-23 13:45 | Progress Note ---
Assessment and Plan Assessment and plan: Patient is a 58 yo woman with a history of left breast cancer s/p mastectomy with bone metastasis, stage IV cancer, former tobacco and cocaine user and hepatitis C who presents to [facility] ED from psych facility for suicidal ideation with taking pills to overdose. She apparently stumbled and fell 2 days prior to coming here. While in ED, she had a witnessed seizure with AMS. * CT head without contrast IMPRESSION: No acute intracranial process is identified. Numerous lytic calvarial lesions are again noted suggestive of multiple myeloma or metastatic disease. No change is demonstrated since 03/19/2019. * CT abd/pelvis with IV constrast IMPRESSION: 1. No acute abnormality identified. Interval progression of metastatic disease which is primarily seen within the bones but now also seen in the lung bases. The primary differential considerations would be metastatic disease such as lung cancer versus multiple myeloma. Please note that the patient has severe spinal canal narrowing at several levels but overall greatest at L1. New Onset Seizure most likely related to metastatic brain lesions: treat with iv keppra, consult Neurology Acute metabolic encephalopathy, related to the above Metastatic breast cancer to the bone and now to the brain and lungs suspect: consulted heme/onc, supportive care Hypokalemia: replete and monitor bmp closely Hypomagnesemia: replete and monitor levels closely Hypercalcemia due to mets: treated with Pamidronate and calcitriol DVT prophylaxis: sq lovenox Suicidal ideation: consult mental health, on 1013 Mechanical fall: consult PT poor prognosis, agonal breathing DNR Met with daughter Aneta at bedside, DNR form sign will re-send 1013 and discharge to inpatient hospice give iv morphine Waiting for Hospice bed, d/w case management to look at another Hospice company History Interval history: Patient was seen and examined. Follow-up on current diagnosis of SI, fall, new seizures. No overnight events reported to me. Patient denies any chest pain, shortness breath, nausea/vomiting or severe headaches. Imaging, nursing note, chart, labs and old chart reviewed. Discussed with patient. Hospitalist Physical - Physical exam Narrative exam: Gen: ill appearing, NAD, Awake, Alert, Orientated HEENT: NCAT, EOMI, PERRL, OP Clear Neck: supple, no adenopathy, no thyromegaly, no JVD CVS/Heart: RRR, normal S1S2, pulses present bilaterally Chest/Lungs: CTA B, Symmetrical chest expansion, good air entry bilaterally GI/Abdomen: soft, NTND, good bowel sounds, no guarding or rebound /Bladder: no suprapubic tenderness, no CVA or paraspinal tenderness Extermity/Skin: no c/c/e, no obvious rash MSK: FROM x 4 Neuro: CN 2-12 grossly intact, no new focal deficits Psych: calm - Constitutional Vitals: Temp Pulse Resp BP Pulse Ox 97.6 F 128 H 18 156/104 98 03/23/19 11:26 03/23/19 11:26 03/23/19 11:26 03/23/19 11:26 03/23/19 12:01 Results - Labs CBC & Chem 7: 03/22/19 06:47 03/22/19 06:47 Labs: Laboratory Last Values WBC 13.2 K/mm3 (4.5-11.0) H 03/22/19 06:47 RBC 4.76 M/mm3 (3.65-5.03) 03/22/19 06:47 Hgb 14.2 gm/dl (10.1-14.3) 03/22/19 06:47 Hct 43.1 % (30.3-42.9) H 03/22/19 06:47 MCV 91 fl (79-97) 03/22/19 06:47 MCH 30 pg (28-32) 03/22/19 06:47 MCHC 33 % (30-34) 03/22/19 06:47 RDW 13.4 % (13.2-15.2) 03/22/19 06:47 Plt Count 364 K/mm3 (140-440) 03/22/19 06:47 Lymph % (Auto) 12.1 % (13.4-35.0) L 03/22/19 06:47 [place] % (Auto) 8.2 % (0.0-7.3) H 03/22/19 06:47 Eos % (Auto) 0.0 % (0.0-4.3) 03/22/19 06:47 Baso % (Auto) 0.4 % (0.0-1.8) 03/22/19 06:47 Lymph # 1.6 K/mm3 (1.2-5.4) 03/22/19 06:47 [place] # 1.1 K/mm3 (0.0-0.8) H 03/22/19 06:47 Eos # 0.0 K/mm3 (0.0-0.4) 03/22/19 06:47 Baso # 0.1 K/mm3 (0.0-0.1) 03/22/19 06:47 Seg Neutrophils % 79.3 % (40.0-70.0) H 03/22/19 06:47 Seg Neutrophils # 10.5 K/mm3 (1.8-7.7) H 03/22/19 06:47 Sodium 150 mmol/L (137-145) H D 03/22/19 06:47 Potassium 3.8 mmol/L (3.6-5.0) D 03/22/19 06:47 Chloride 113.1 mmol/L (98-107) H 03/22/19 06:47 Carbon Dioxide 24 mmol/L (22-30) 03/22/19 06:47 17 mmol/L 03/22/19 06:47 BUN 10 mg/dL (7-17) 03/22/19 06:47 0.6 mg/dL (0.7-1.2) L 03/22/19 06:47 Estimated GFR > 60 ml/min 03/22/19 06:47 17 % 03/22/19 06:47 Glucose 154 mg/dL (65-100) H 03/22/19 06:47 Calcium 12.6 mg/dL (8.4-10.2) H* 03/22/19 06:47 Magnesium 1.60 mg/dL (1.7-2.3) L 03/21/19 14:20 1.50 mg/dL (0.1-1.2) H 03/22/19 06:47 AST 65 units/L (5-40) H 03/22/19 06:47 ALT 19 units/L (7-56) 03/22/19 06:47 218 units/L (35-129) H 03/22/19 06:47 8.0 g/dL (6.3-8.2) 03/22/19 06:47 3.4 g/dL (3.9-5) L 03/22/19 06:47 0.7 % 03/22/19 06:47 TSH 2.280 mlU/mL (0.270-4.200) 03/19/19 17:38 Free T4 1.28 ng/dL (0.76-1.46) 03/19/19 17:38 Yellow (Yellow) 03/19/19 18:00 Cloudy (Clear) 03/19/19 18:00 7.0 (5.0-7.0) 03/19/19 18:00 Ur Specific [place] 1.006 (1.003-1.030) 03/19/19 18:00 <15 mg/dl mg/dL (Negative) 03/19/19 18:00 Neg mg/dL (Negative) 03/19/19 18:00 Neg mg/dL (Negative) 03/19/19 18:00 Neg (Negative) 03/19/19 18:00 Neg (Negative) 03/19/19 18:00 Neg (Negative) 03/19/19 18:00 < 2.0 mg/dL (<2.0) 03/19/19 18:00 Ur Leukocyte Esterase Mod (Negative) 03/19/19 18:00 8.0 /HPF (0.0-6.0) H 03/19/19 18:00 4.0 /HPF (0.0-6.0) 03/19/19 18:00 U Epithel Cells (Auto) 13.0 /HPF (0-13.0) 03/19/19 18:00 Amorphous Crystals Few 03/19/19 18:00 Few /HPF 03/19/19 18:00 Salicylates < 0.3 mg/dL (2.8-20.0) L 03/19/19 17:38 Presumptive negative 03/19/19 18:00 Presumptive negative 03/19/19 18:00 Acetaminophen < 5.0 ug/mL (10.0-30.0) L 03/19/19 17:38 Ur Barbiturates Screen Presumptive negative 03/19/19 18:00 Ur Phencyclidine Scrn Presumptive negative 03/19/19 18:00 Ur Amphetamines Screen Presumptive negative 03/19/19 18:00 U Benzodiazepines Scrn Presumptive negative 03/19/19 18:00 Presumptive negative 03/19/19 18:00 U Marijuana (THC) Screen Presumptive negative 03/19/19 18:00 Disclamer 03/19/19 18:00 Plasma/Serum Alcohol < 0.01 % (0-0.07) 03/19/19 17:38 Blood Type O POSITIVE 03/19/19 17:41 Antibody Screen Negative 03/19/19 17:41 Active Medications - Current Medications Current Medications: Generic Name Dose Route Start Last Admin Trade Name Freq PRN Reason Stop Dose Admin Calcitonin [place] 50 unit 03/21/19 22:00 03/23/19 09:22 Miacalcin SUB-Q 50 unit Q12HR SHARI Administration Famotidine 20 mg 03/21/19 22:00 03/23/19 09:25 Pepcid IV 20 mg BID SHARI Administration Hydromorphone HCl 1 mg 03/21/19 21:33 03/23/19 04:34 Dilaudid IV 1 mg Q3H PRN Administration Pain , Severe (7-10) Dextrose/Sodium Chloride 1,000 mls @ 125 mls/hr 03/22/19 10:00 03/23/19 09:15 D5/0.45ns IV 125 mls/hr DIRECT SHARI Administration Levetiracetam 1,000 mg/ 110 mls @ 400 mls/hr 03/22/19 22:00 03/23/19 11:24 Dextrose IV 400 mls/hr Q12HR SHARI Administration Ondansetron HCl 4 mg 03/21/19 21:33 03/22/19 14:44 Zofran IV 4 mg Q8H PRN Administration Nausea And Vomiting Sodium Chloride 10 ml 03/21/19 22:00 03/23/19 09:26 Sodium Chloride Flush Syringe 10 Ml IV 10 ml BID SHARI Administration Sodium Chloride 10 ml 03/21/19 21:33 Sodium Chloride Flush Syringe 10 Ml IV PRN PRN LINE FLUSH Nutrition/Malnutrition Assess - Dietary Evaluation Nutrition/Malnutrition Findings: Nutrition Notes Start: 03/22/19 15:23 Freq: Status: Active Protocol: Document 03/22/19 15:23 RM (Rec: 03/22/19 15:29 RM [id number]) Nutrition Notes Need for Assessment generated from: Low BMI Initial or Follow up Brief Note Other Pertinent Diagnosis HX cancer w/bone metastasis, Hx Hep C, Seizure disorder, Nonverbal Subjective/Other Information Screened for low BMI. Pt and pt relative's in room at time of visit. Pt relative at bedside crying and stated that pt has not been eating. Also stated that pt has little interested in ONS. Per case management pt is going on hospice. Nutrition Intervention Follow-Up By: 03/25/19 Additional Comments Follow for POC
[2019-03-24] MEDS: D5/0.45NS 1,000 ML IV SCH ×2 (01:24→09:45)
[2019-03-24] MEDS: DILAUDID IV PRN ×3 (03:43→10:44)
--- NOTE | 2019-03-24 05:30 | Consultation ---
REFERRED BY: Dr. Mcknight. REASON FOR CONSULTATION: New onset seizure and patient with history of breast cancer. HISTORY OF PRESENT COMPLAINTS: I saw the patient, a 58-year-old female in the medical floor. The patient has a history of breast cancer. I had seen her in the [facility] and clinic in the recent past. The patient was admitted to the hospital in 12/2018. The patient has a history of left breast cancer, which was diagnosed in 2010 in [place]. She underwent a mastectomy did not get radiation or chemotherapy. She was lost to followup. She says that she was told that she has some spots in the liver, history of hepatitis C, history of lung lesions, presumed to be metastatic, history of bone lesion, presumed to be metastatic, history of axillary lymph nodes. Radiology also showed bone lesions for which patient received radiation by Dr. Newton. The patient had been started on anastrozole for the breast cancer. The patient was brought into the hospital because of suicidal ideation. She has been doing this for the last 2-3 weeks. There is a history of stumbling and falling down. There is also mention of history of seizures with movement of the head. Calcium was high. Calcitonin has been given. I have been asked to evaluate the patient. REVIEW OF SYSTEMS: Not reliable. Most of the information comes from the medical note. There is a sitter in the room because of suicidal ideation. PAST MEDICAL HISTORY: As above. SURGICAL HISTORY: Mastectomy. FAMILY HISTORY: Noncontributory. SOCIAL HISTORY: Former smoker, former cocaine user. HOME MEDICATIONS: Include tramadol, Percocet, oxycodone and anastrozole was used. ALLERGIES: ASPIRIN, IBUPROFEN. PHYSICAL EXAMINATION: VITAL SIGNS: Temperature 98, pulse 115, respirations 18, BP 125/86. HEENT: No pallor, no icterus. NECK: No neck lymph nodes. Mastectomy. HEART: S1, S2. GASTROINTESTINAL: No abdominal distention. NEUROLOGY: Not able to evaluate. The patient is not verbalizing, not responding. LABORATORY DATA: White cell 13, hemoglobin 14, MCV 91, platelets 364. Potassium 3.8, creatinine 0.6, calcium at admission was 11.5, then 13 and then 12.6, bilirubin 1.5, AST 65. RADIOLOGY: CT head was done. Abdomen CT was done. ASSESSMENT: 1. History of stage 4 breast cancer with lung mets and bone mets. 2. Hypercalcemia. 3. Radiology shows disease progression. 4. History of seizure-like activity. 5. History of suicidal ideation. 6. Dehydration. 7. Electrolyte imbalance. 8. The patient was started on antiepileptic medication. 9. As per the notes, there is mention of DNR/DNI. 10. The patient also has history of drug usage. I will follow the patient during inpatient stay. JOB# [id number] NM/NTS
[2019-03-24] MEDS: MIACALCIN SUB-Q SCH (09:36)
[2019-03-24] MEDS: PEPCID IV SCH (09:36)
[2019-03-24] MEDS: SODIUM CHLORIDE FLUSH SYRINGE 10 ML IV SCH (09:37)
[2019-03-24 09:43] VITALS: BP 127/93
[2019-03-24] MEDS: KEPPRA 1,000 MG in D5W 100 ML IV SCH (10:22)
--- NOTE | 2019-03-24 13:06 | Progress Note ---
Assessment and Plan Assessment and plan: Patient is a 58 yo woman with a history of left breast cancer s/p mastectomy with bone metastasis, stage IV cancer, former tobacco and cocaine user and hepatitis C who presents to [facility] ED from psych facility for suicidal ideation with taking pills to overdose. She apparently stumbled and fell 2 days prior to coming here. While in ED, she had a witnessed seizure with AMS. * CT head without contrast IMPRESSION: No acute intracranial process is identified. Numerous lytic calvarial lesions are again noted suggestive of multiple myeloma or metastatic disease. No change is demonstrated since 03/19/2019. * CT abd/pelvis with IV constrast IMPRESSION: 1. No acute abnormality identified. Interval progression of metastatic disease which is primarily seen within the bones but now also seen in the lung bases. The primary differential considerations would be metastatic disease such as lung cancer versus multiple myeloma. Please note that the patient has severe spinal canal narrowing at several levels but overall greatest at L1. New Onset Seizure most likely related to metastatic brain lesions: treat with iv keppra, consult Neurology Acute metabolic encephalopathy, related to the above Metastatic breast cancer to the bone and now to the brain and lungs suspect: consulted heme/onc, supportive care Hypokalemia: replete and monitor bmp closely Hypomagnesemia: replete and monitor levels closely Hypercalcemia due to mets: treated with Pamidronate and calcitriol DVT prophylaxis: sq lovenox Suicidal ideation: consult mental health, on 1013 Mechanical fall: consult PT poor prognosis, agonal breathing DNR Met with daughter Aneta at bedside, DNR form sign will re-send 1013 and discharge to inpatient hospice give iv morphine Waiting for Hospice bed, d/w case management to look at another Hospice company History Interval history: Patient was seen and examined. Follow-up on current diagnosis of SI, fall, new seizures. No overnight events reported to me. Patient denies any chest pain, shortness breath, nausea/vomiting or severe headaches. Imaging, nursing note, chart, labs and old chart reviewed. Discussed with patient. Hospitalist Physical - Physical exam Narrative exam: Gen: ill appearing, agonal breathing HEENT: NCAT, left eye disconjugate, looking up to the left, PERRL, OP dry, mouth open Neck: supple, no adenopathy, no thyromegaly, no JVD CVS/Heart: Regular tachy, normal S1S2, pulses present bilaterally Chest/Lungs: congested, Symmetrical chest expansion, poor air entry bilaterally GI/Abdomen: distended, hypo bowel sounds, no guarding or rebound /Bladder: no suprapubic tenderness, no CVA or paraspinal tenderness Extermity/Skin: poor skin tuguor MSK: not moving Neuro: not following commands Psych: unresponsive - Constitutional Vitals: Temp Pulse Resp BP Pulse Ox 98.3 F 106 H 16 127/93 98 03/24/19 08:26 03/24/19 10:00 03/24/19 10:00 03/24/19 08:26 03/24/19 10:00 Results - Labs CBC & Chem 7: 03/22/19 06:47 03/22/19 06:47 Labs: Laboratory Last Values WBC 13.2 K/mm3 (4.5-11.0) H 03/22/19 06:47 RBC 4.76 M/mm3 (3.65-5.03) 03/22/19 06:47 Hgb 14.2 gm/dl (10.1-14.3) 03/22/19 06:47 Hct 43.1 % (30.3-42.9) H 03/22/19 06:47 MCV 91 fl (79-97) 03/22/19 06:47 MCH 30 pg (28-32) 03/22/19 06:47 MCHC 33 % (30-34) 03/22/19 06:47 RDW 13.4 % (13.2-15.2) 03/22/19 06:47 Plt Count 364 K/mm3 (140-440) 03/22/19 06:47 Lymph % (Auto) 12.1 % (13.4-35.0) L 03/22/19 06:47 [place] % (Auto) 8.2 % (0.0-7.3) H 03/22/19 06:47 Eos % (Auto) 0.0 % (0.0-4.3) 03/22/19 06:47 Baso % (Auto) 0.4 % (0.0-1.8) 03/22/19 06:47 Lymph # 1.6 K/mm3 (1.2-5.4) 03/22/19 06:47 [place] # 1.1 K/mm3 (0.0-0.8) H 03/22/19 06:47 Eos # 0.0 K/mm3 (0.0-0.4) 03/22/19 06:47 Baso # 0.1 K/mm3 (0.0-0.1) 03/22/19 06:47 Seg Neutrophils % 79.3 % (40.0-70.0) H 03/22/19 06:47 Seg Neutrophils # 10.5 K/mm3 (1.8-7.7) H 03/22/19 06:47 Sodium 150 mmol/L (137-145) H D 03/22/19 06:47 Potassium 3.8 mmol/L (3.6-5.0) D 03/22/19 06:47 Chloride 113.1 mmol/L (98-107) H 03/22/19 06:47 Carbon Dioxide 24 mmol/L (22-30) 03/22/19 06:47 17 mmol/L 03/22/19 06:47 BUN 10 mg/dL (7-17) 03/22/19 06:47 0.6 mg/dL (0.7-1.2) L 03/22/19 06:47 Estimated GFR > 60 ml/min 03/22/19 06:47 17 % 03/22/19 06:47 Glucose 154 mg/dL (65-100) H 03/22/19 06:47 Calcium 12.6 mg/dL (8.4-10.2) H* 03/22/19 06:47 Magnesium 1.60 mg/dL (1.7-2.3) L 03/21/19 14:20 1.50 mg/dL (0.1-1.2) H 03/22/19 06:47 AST 65 units/L (5-40) H 03/22/19 06:47 ALT 19 units/L (7-56) 03/22/19 06:47 218 units/L (35-129) H 03/22/19 06:47 8.0 g/dL (6.3-8.2) 03/22/19 06:47 3.4 g/dL (3.9-5) L 03/22/19 06:47 0.7 % 03/22/19 06:47 TSH 2.280 mlU/mL (0.270-4.200) 03/19/19 17:38 Free T4 1.28 ng/dL (0.76-1.46) 03/19/19 17:38 Yellow (Yellow) 03/19/19 18:00 Cloudy (Clear) 03/19/19 18:00 7.0 (5.0-7.0) 03/19/19 18:00 Ur Specific [place] 1.006 (1.003-1.030) 03/19/19 18:00 <15 mg/dl mg/dL (Negative) 03/19/19 18:00 Neg mg/dL (Negative) 03/19/19 18:00 Neg mg/dL (Negative) 03/19/19 18:00 Neg (Negative) 03/19/19 18:00 Neg (Negative) 03/19/19 18:00 Neg (Negative) 03/19/19 18:00 < 2.0 mg/dL (<2.0) 03/19/19 18:00 Ur Leukocyte Esterase Mod (Negative) 03/19/19 18:00 8.0 /HPF (0.0-6.0) H 03/19/19 18:00 4.0 /HPF (0.0-6.0) 03/19/19 18:00 U Epithel Cells (Auto) 13.0 /HPF (0-13.0) 03/19/19 18:00 Amorphous Crystals Few 03/19/19 18:00 Few /HPF 03/19/19 18:00 Salicylates < 0.3 mg/dL (2.8-20.0) L 03/19/19 17:38 Presumptive negative 03/19/19 18:00 Presumptive negative 03/19/19 18:00 Acetaminophen < 5.0 ug/mL (10.0-30.0) L 03/19/19 17:38 Ur Barbiturates Screen Presumptive negative 03/19/19 18:00 Ur Phencyclidine Scrn Presumptive negative 03/19/19 18:00 Ur Amphetamines Screen Presumptive negative 03/19/19 18:00 U Benzodiazepines Scrn Presumptive negative 03/19/19 18:00 Presumptive negative 03/19/19 18:00 U Marijuana (THC) Screen Presumptive negative 03/19/19 18:00 Disclamer 03/19/19 18:00 Plasma/Serum Alcohol < 0.01 % (0-0.07) 03/19/19 17:38 Blood Type O POSITIVE 03/19/19 17:41 Antibody Screen Negative 03/19/19 17:41 Active Medications - Current Medications Current Medications: Generic Name Dose Route Start Last Admin Trade Name Freq PRN Reason Stop Dose Admin Calcitonin [place] 50 unit 03/21/19 22:00 03/24/19 09:36 Miacalcin SUB-Q 50 unit Q12HR SHARI Administration Famotidine 20 mg 03/21/19 22:00 03/24/19 09:36 Pepcid IV 20 mg BID SHARI Administration Hydromorphone HCl 1 mg 03/21/19 21:33 03/24/19 10:44 Dilaudid IV 1 mg Q3H PRN Administration Pain , Severe (7-10) Dextrose/Sodium Chloride 1,000 mls @ 125 mls/hr 03/22/19 10:00 03/24/19 09:45 D5/0.45ns IV 125 mls/hr DIRECT SHARI Administration Levetiracetam 1,000 mg/ 110 mls @ 400 mls/hr 03/22/19 22:00 03/24/19 10:22 Dextrose IV 400 mls/hr Q12HR SHARI Administration Ondansetron HCl 4 mg 03/21/19 21:33 03/22/19 14:44 Zofran IV 4 mg Q8H PRN Administration Nausea And Vomiting Sodium Chloride 10 ml 03/21/19 22:00 03/24/19 09:37 Sodium Chloride Flush Syringe 10 Ml IV 10 ml BID SHARI Administration Sodium Chloride 10 ml 03/21/19 21:33 Sodium Chloride Flush Syringe 10 Ml IV PRN PRN LINE FLUSH Nutrition/Malnutrition Assess - Dietary Evaluation Nutrition/Malnutrition Findings: Nutrition Notes Start: 03/22/19 15:23 Freq: Status: Active Protocol: Document 03/22/19 15:23 RM (Rec: 03/22/19 15:29 RM [id number]) Nutrition Notes Need for Assessment generated from: Low BMI Initial or Follow up Brief Note Other Pertinent Diagnosis HX cancer w/bone metastasis, Hx Hep C, Seizure disorder, Nonverbal Subjective/Other Information Screened for low BMI. Pt and pt relative's in room at time of visit. Pt relative at bedside crying and stated that pt has not been eating. Also stated that pt has little interested in ONS. Per case management pt is going on hospice. Nutrition Intervention Follow-Up By: 03/25/19 Additional Comments Follow for POC
== END 2019-03-24 14:28 | disposition hospice, inpatient (51) | DRG 100 ==
LOC: EEVIPCON 17:02 → ED 17:02 → 4A 03-21 15:23
PROVIDERS: ADMIT Internal Medicine; ATTEND Internal Medicine
DX: G40.802 Other epilepsy, not intractable, without status epilepticus (principal); J96.01 Acute respiratory failure with hypoxia; C79.31 Secondary malignant neoplasm of brain; E87.0 Hyperosmolality and hypernatremia; C79.51 Secondary malignant neoplasm of bone; E86.0 Dehydration; W18.39XA Other fall on same level, initial encounter; Z66 Do not resuscitate; Z51.5 Encounter for palliative care; E83.52 Hypercalcemia; E87.6 Hypokalemia; E83.42 Hypomagnesemia; R73.9 Hyperglycemia, unspecified; Z85.3 Personal history of malignant neoplasm of breast; Z90.12 Acquired absence of left breast and nipple; Y93.89 Activity, other specified; Y92.89 Other specified places as the place of occurrence of the external cause; Y99.8 Other external cause status; Z88.6 Allergy status to analgesic agent; Z88.1 Allergy status to other antibiotic agents; B19.20 Unspecified viral hepatitis C without hepatic coma; H91.90 Unspecified hearing loss, unspecified ear; Z79.899 Other long term (current) drug therapy
CPT/HCPCS: 36415; 70450; 72100; 74177; 80048; 80053; 80307; 80320; 81001; 83735; 84439; 84443; 85025; 86850; 86900; 86901; 94760; G0378; G0480; J0630; J1170; J1940; J1953; J2060; J2405; J2430; J3010; J3475; J3480; J7030; J7042; Q9967